=== PATIENT | female | born 1935 | race Caucasian/White ===

== ENCOUNTER 2019-01-22 | Emergency (ER) | payer MEDICARE, OTHER | END 2019-01-22 18:30 | disposition home or self-care (01) | DX: M54.9 Dorsalgia, unspecified (principal); R29.898 Other symptoms and signs involving the musculoskeletal system; S32.010A Wedge compression fracture of first lumbar vertebra, initial encounter for closed fracture | CPT/HCPCS: 36415; 72128; 72131; 82550; 83690; 83735; 85651; 99283; 99284; A9270; 80053; 84443; 85025 ==

== ENCOUNTER 2024-05-06 18:14 | Inpatient (IN) ==
--- NOTE | 2024-05-06 18:28 | ED Physician Documentation ---
History of Present Illness Stated complaint Stated Complaint: GEN WEAKNESS Chief complaint Chief Complaint: General Additonal information Additional information: 88-year-old female with history of pacemaker, memory deficit, hypothyroidism presents with altered mental status. History clarified from triage notes. Patient is relatively new to her skilled nursing. Intermittently lately, she has seemed generally weak, complaining of whole body aches, and today at times seemed agitated, including at the end of the visit with her family. No trauma, focal pain, fevers or chills, focal numbness or focal weakness, visual or hearing changes, syncope, or any other new concerns. Patient here is confused, unable to give additional history, though reportedly she is typically ANO x 4. Currently, she only knows her name and where she is. Review of Systems ROS Patient altered and cannot provide further information. Meds/Allgy Home Medications Ambulatory Orders Medication Instructions Recorded Confirmed acetaminophen 325 mg capsule 325 mg PO Q6H PRN pain 04/29/24 05/06/24 Allergies Allergies Allergy/AdvReac Type Severity Reaction Status Date / Time cat dander Allergy Intermediate Sneezing, Verified 05/06/24 18:48 watery eyes grass pollen Allergy Intermediate Sneezing, Verified 05/06/24 18:48 watery eyes PFSH Medical History Medical History (Updated 04/29/24 @ 17:47 by Wayne Purvis, DNP, PRIVATE BRANCH EXCHANGE SERVICE ADVISOR, FLUID DESIGNER) Lumbar compression fracture Leg weakness Back pain Family History Family History (Updated 04/29/24 @ 11:43 by Aram Ramos) Mother Alzheimers disease Father CVA (cerebral vascular accident) Brother Alzheimers disease Sister Alzheimers disease Social History Social History (Updated 04/29/24 @ 11:44 by Aram Ramos) Smoking Status: Former smoker If you are a former smoker, when did you quit? (Date/Year): 1979 Second hand tobacco smoke exposure: Yes Do you dip or chew tobacco?: No Do you vape?: No Marital Status: Support Person: Yes Relationship: Child Level: Assisted Home Mobility Equipment: Wheeled walker ETOH Use: Wine Frequency: Occasional ETOH Use Details: Drinks once every 6 months Substance Use: denies use POLST POLST Status: unknown no Medical Recor Exam Exam Const: no acute distress, non toxic appearing; calm, conversant, pleasant though confused Eyes: PERRLA, EOMI ENT: mucous membranes moist Neck: supple, non-tender Resp: no respiratory distress, clear to auscultation bilaterally Card: regular rate and rhythm, no murmurs Abd: non tender diffusely, no rigidity or rebound or guarding Back: no T or L spine tenderness, no CVA tenderness bilaterally Extrem: no deformities, no swelling bilateral lower extremities, 2+ distal pulses Neuro: ANOx2/4 (to name and where is), ctc operator grossly intact, grossly intact sensation and strength all extremities, no lateralizing signs, able to move all extremities equally, no dysarthria, no aphasia Skin: no rash, warm and dry Results Vitals Vitals: Vital Signs - 24 hr 05/06/24 18:14 05/06/24 18:22 Temperature 36.0 C L Temperature Source Temporal Artery Scan Pulse Rate 70 60 Respiratory Rate 20 18 Blood Pressure 144/99 H 144/99 H O2 Saturation 94 94 O2 Source Room air Room air Pain Intensity 6 5 Oxygen O2 Source Room air Labs Labs: Laboratory Tests 05/06/24 18:40 WBC 5.0 RBC 3.65 L Hgb 11.4 L Hct 36.1 L MCV 98.9 MCH 31.2 H MCHC 31.6 L RDW 14.1 Plt Count 186 MPV 11.2 H Neut # (Auto) 3.3 Lymph # (Auto) 1.2 L [place] # (Auto) 0.3 Eos # (Auto) 0.1 Baso # (Auto) 0.0 Absolute Nucleated RBC 0.00 Nucleated RBC % 0.0 Sodium 136 Potassium 4.3 Chloride 101 Carbon Dioxide 30 Anion Gap 5.0 L BUN 19 Creatinine 1.1 Estimated GFR (MDRD) 47 L Glucose 117 H Calcium 9.5 Total Bilirubin 1.0 AST 55 H ALT 22 Alkaline Phosphatase 53 Total Protein 7.1 Albumin 4.1 Globulin 3.0 Albumin/Globulin Ratio 1.4 PD Medical Decision Making ED course ED course: This patient presents with reported generalized weakness, altered mental status, without clear focal neurologic deficit to suggest stroke, without fever or clear focal pain or dyspnea. I ahve considered a broad differential including but not limited to viral syndrome, UTI, pneumonia, electrolyte derangements, intravascular volume depletion, ICH, renal failure, among others. However, progression of underlying dementia is also possible. I am obtaining CTA, chest x-ray, EKG, CBC, CMP, urinalysis, viral swab, giving fluids, and we will closely reassess. CBC with no leukocytosis, stable appearing anemia, no thrombocytopenia. EKG shows paced rhythm without clear acute ischemia, with rate WNL. QRS and QTc prolongation in setting of paced rhythm. No recent for comparison. [facility] Mays spoken with by RN, who also spoke with daughter. Patient was living with but he 1.5mo ago. It sounds like Celi Mays is more assisted living than a skilled nursing. She has been there about a week. Patient was not doing well living with daughter before this. On clarification, she is NOT typically ANOx4 at baseline but has been gradually worsening over many months. No medication allergies. No regular medications. Signing out stable condition at 1910 with plan to complete above work up and reassess. Discharge Plan Discharge Prescriptions: No Action acetaminophen 325 mg capsule 325 mg PO Q6H PRN (Reason: pain) Print Language: Spanish Stand Alone Forms: PCP List
[2024-05-06 18:45] LABS: BASOPHILS % (AUTO) 0.6 %; EOSINOPHILS # (AUTO) 0.1 10^3/uL (0.0-0.7); EOSINOPHILS % (AUTO) 1.8 %; HCT - HEMATOCRIT 36.1 % (37.0-47.0); HGB - HEMOGLOBIN 11.4 g/dL (12.0-16.0); LYMPHOCYTES # (AUTO) 1.2 10^3/uL (1.5-3.5); MEAN CORPUSCULAR HEMOGLOBIN 31.2 pg (27.0-31.0); MEAN CORPUSCULAR HGB CONC 31.6 g/dL (32.0-36.0); MEAN CORPUSCULAR VOLUME 98.9 fL (81.0-99.0); MEAN PLATELET VOLUME 11.2 fL (7.9-10.8); MONOCYTES # (AUTO) 0.3 10^3/uL (0.0-1.0); MONOCYTES % (AUTO) 6.3 %; NEUTROPHILS # (AUTO) 3.3 10^3/uL (1.5-6.6); NEUTROPHILS % (AUTO) 67.1 %; PLT - PLATELET COUNT 186 10^3/uL (130-450); RED BLOOD COUNT 3.65 10^6/uL (4.20-5.40); RED CELL DISTRIBUTION WIDTH 14.1 % (12.0-15.0)
[2024-05-06] MEDS: SODIUM CHLORIDE 0.9% 500 ML IV STA (18:46)
[2024-05-06 18:58] LABS: ALBUMIN 4.1 g/dL (3.2-5.5); CALCIUM 9.5 mg/dL (8.5-10.3); POTASSIUM 4.3 mmol/L (3.5-4.5)
[2024-05-06 19:04] LABS: ALBUMIN/GLOBULIN RATIO 1.4 (1.0-2.2); CREATININE 1.1 mg/dL (0.6-1.3); TOTAL PROTEIN 7.1 g/dL (6.4-8.9)
--- NOTE | 2024-05-06 19:17 | CT Report ---
PROCEDURE: CT Head WO INDICATIONS: AMS TECHNIQUE: Noncontrast 4.5 mm thick angled axial sections acquired from the foramen magnum to the vertex. For r adiation dose reduction, the following was used: automated exposure control, adjustment of mA and/or kV according to patient size. COMPARISON: None. FINDINGS: Image quality: Excellent. CSF spaces: Basal cisterns are patent. No extra-axial fluid collections. Ventricles are normal in size and shape. Brain: No midline shift. No intracranial masses or hemorrhage. Allen-white matter interface is norm al. Age-related volume loss and small vessel ischemic change. Skull and face: Calvarium and visualized facial bones are intact, without suspicious lesions. Sinuses: Visualized sinuses and mastoids are clear. IMPRESSION: No acute intracranial pathology. Reviewed by: Luisito Granado MD on 05/06/2024 7:15 PM PST Approved by: Luisito Granado MD on 05/06/2024 7:15 PM PST Station ID: [id number]
[2024-05-06 19:34] LABS: INFLUENZA A- RESP PCR PANEL NOT DETECTED; INFLUENZA B - RESP PCR PANEL NOT DETECTED; RSV- RESP PCR PANEL NOT DETECTED; SARS-CoV-2 -RESP PCR PANEL NOT DETECTED
--- NOTE | 2024-05-06 19:46 | XRAY Report ---
PROCEDURE: XR Chest 1V INDICATIONS: AMS TECHNIQUE: One view of the chest was acquired. COMPARISON: None. FINDINGS: Surgical changes and devices: Pacemaker. Lungs and pleura: No pleural effusions or pneumothorax. Mild pulmonary edema. Small left pleural eff usion and left basilar atelectasis. Mediastinum: Mediastinal contours appear normal. Heart size is enlarged. Bones and chest wall: No suspicious bony lesions. Overlying soft tissues appear unremarkable. IMPRESSION: Congestive heart failure exacerbation Reviewed by: Luisito Graando MD on 05/06/2024 7:44 PM PST Approved by: Luisito Granado MD on 05/06/2024 7:44 PM PST Station ID: [id number]
[2024-05-06 20:12] LABS: BILIRUBIN,URINE NEGATIVE (NEGATIVE); GLUCOSE, URINE (UA) NEGATIVE (NEGATIVE); KETONES,URINE (UA) NEGATIVE (NEGATIVE); LEUKOCYTE ESTERASE, URINE SMALL (NEGATIVE); NITRITE,URINE NEGATIVE (NEGATIVE); OCCULT BLOOD,URINE NEGATIVE (NEGATIVE); PROTEIN,URINE NEGATIVE (NEGATIVE); UROBILINOGEN,URINE 0.2 (NORMAL) E.U./dL (NORMAL)
[2024-05-06 20:19] LABS: BACTERIA,URINE Rare /HPF (None Seen); CLARITY,URINE CLEAR (CLEAR); RBC,URINE 0-5 /HPF (0-5); SQUAMOUS EPITHELIAL CELL,UR RARE Squamous (<= Few)
[2024-05-06] MEDS ORDERED: ACETAMINOPHEN 500 MG TABLET PO PRN (21:15)
[2024-05-06] MEDS ORDERED: ONDANSETRON 4 MG/2 ML VIAL IVP PRN (21:15)
--- NOTE | 2024-05-06 21:15 | ED Physician Documentation ---
ED Addendum Addendum Addendum: Patient endorsed to me by Dr. Cancino awaiting completion of workup. 88-year-old woman presents to the emergency department with generalized weakness, confusion and report from [facility] that she may have been acting erratically/agitated around staff. She reportedly has had several month decline in cognitive functioning and just moved to [facility] 1 week ago. patient AOX 1 in the ED and unable to state her location or the year. She does however state she has had a lot of changes recently including the other her and moving and is not adjusting well. denies CP, SOA, fever, n/v/abdominal pain, urinary symptoms or other complaints. Her workup included labwork, cxr, ct head, ua and was significant for +leukocyte esterase on ua that I attribute to asymtpomatic bacteriuria given she has no abdominal pain or urinary symptoms. Her confusion seems to be a gradual decline rather than acute encephalopathy. Ct head was negative. patient's CXR was remarkable for some pulmonary overload but lung exam is benign and she denies cp or soa therefore I do not consider this clinically significant at this time. Plan to monitor overnight and have social work see her in the morning for potential alternative placement since she may need more advanced care than what [facility] provides. Note that upon further interview of the daughter, patient stopped taking synthroid back in november under her doctor's approval since she had been on a very low dose and doing well. I reviewed her past labs and she had TSH of 64.58 4 days ago but appears not to have restarted synthroid yet. Provided 100ucg IV synthroid. Possible this is contributing to her confusion. plan to discuss with telehospitalist for admission for hypothyroid induced encephalopathy. Disposition admit condition stable Impression 1. altered mental status 2. hypothyroidism Discharge Plan Discharge Patient Disposition: [facility] DC/Xfer Condition: Stable Clinical Impression: Hypothyroidism, Acute alteration in mental status Prescriptions: No Action acetaminophen 325 mg capsule 325 mg PO Q6H PRN (Reason: pain) Print Language: Honduran
[2024-05-07] MEDS: LEVOTHYROXINE 100 MCG VIAL IVP STA ×2 (01:15→11:30)
[2024-05-07] MEDS ORDERED: MELATONIN 3 MG TABLET PO PRN (02:24)
[2024-05-07] MEDS ORDERED: MORPHINE 10 MG/ML VIAL IVP PRN (02:24)
--- NOTE | 2024-05-07 02:59 | HISTORY & PHYSICAL EXAMINATION ---
Chief Complaint Chief Complaint Chief Complaint: headache, confusion History of Present Illness History of Present Illness HPI Comment/Other: pt with worsening agitation and confusion over the past week, per her MICHELLE. no focal deficits, no falls, no chest pain, fevers, chills, n/v/d. pt was on synthroid, which was stopped this recent summer d/t normalizing of thryoid hormone levels. this was stopped per her pcp recommendations, and she was doing overall ok until about a week ago. no falls, no head injuries reported. pt feels confused but is able to answer basic questions and has complaints of headache. Review of Systems 14 pt review done with repeated, simple questions. positives per hpi; all others reviewed as negative PFSH Medical History Medical History (Updated 05/07/24 @ 02:28 by Rebecca Juarez MD) Lumbar compression fracture Leg weakness Back pain Family History Family History (Updated 04/29/24 @ 11:43 by Aram Ramos) Mother Alzheimers disease Father CVA (cerebral vascular accident) Brother Alzheimers disease Sister Alzheimers disease Social History Social History (Updated 04/29/24 @ 11:44 by Aram Ramos) Smoking Status: Former smoker If you are a former smoker, when did you quit? (Date/Year): 1979 Second hand tobacco smoke exposure: Yes Do you dip or chew tobacco?: No Do you vape?: No Marital Status: Support Person: Yes Relationship: Child Level: Assisted Home Mobility Equipment: Wheeled walker ETOH Use: Wine Frequency: Occasional ETOH Use Details: Drinks once every 6 months Substance Use: denies use POLST POLST Status: unknown no Medical Recor Meds/Allgy Home Medications Ambulatory Orders Medication Instructions Recorded Confirmed acetaminophen 325 mg capsule 325 mg PO Q6H PRN pain 04/29/24 05/06/24 Allergies Allergies Allergy/AdvReac Type Severity Reaction Status Date / Time cat dander Allergy Intermediate Sneezing, Verified 05/06/24 18:48 watery eyes grass pollen Allergy Intermediate Sneezing, Verified 05/06/24 18:48 watery eyes Exam Constitutional no apparent distress HENMT normocephalic, head/scalp atraumatic and hearing grossly normal bilaterally Eyes EOMs intact bilaterally and conjunctivae normal Neck/C-Spine visual inspection normal Respiratory per ed charting Cardiovascular per ed charting Neurology no focal deficits Psychiatry pt not able to recall full details of what's happening, but able to answer basic questions and give some history, and able to recall that she did take synthroid Conclusion/Plan Lab Results 05/06/24 18:40 05/06/24 18:40 Other Other Results/Comments: pt with - - toxic, metabolic encephalopathy in setting of uncontrolled hypothyroidism tsh >60 with low t4 IV synthroid given in ED will need to restarted on synthroid check thryoid us no focal deficits and head imaging NEG neuro checks - headache / fatigue in setting of above no focal deficits and head imaging without acute pathology tylenol prn f/u labs, neuro status further orders per clinical course
[2024-05-07] MEDS: LACTATED RINGERS 1,000 ML IV SCH (03:41)
[2024-05-07 05:43] LABS: BASOPHILS % (AUTO) 0.7 %; EOSINOPHILS # (AUTO) 0.1 10^3/uL (0.0-0.7); EOSINOPHILS % (AUTO) 3.2 %; HGB - HEMOGLOBIN 11.2 g/dL (12.0-16.0); LYMPHOCYTES # (AUTO) 1.3 10^3/uL (1.5-3.5); LYMPHOCYTES % (AUTO) 29.9 %; MEAN CORPUSCULAR HEMOGLOBIN 32.3 pg (27.0-31.0); MEAN CORPUSCULAR HGB CONC 32.9 g/dL (32.0-36.0); MEAN PLATELET VOLUME 11.5 fL (7.9-10.8); MONOCYTES # (AUTO) 0.3 10^3/uL (0.0-1.0); MONOCYTES % (AUTO) 7.7 %; NEUTROPHILS # (AUTO) 2.6 10^3/uL (1.5-6.6); NEUTROPHILS % (AUTO) 58.3 %; PLT - PLATELET COUNT 167 10^3/uL (130-450); RED BLOOD COUNT 3.47 10^6/uL (4.20-5.40); RED CELL DISTRIBUTION WIDTH 14.1 % (12.0-15.0); WHITE BLOOD COUNT 4.4 x10^3/uL (4.8-10.8)
[2024-05-07 06:01] LABS: ALBUMIN 4.1 g/dL (3.2-5.5); ALBUMIN/GLOBULIN RATIO 1.9 (1.0-2.2); BILIRUBIN,TOTAL 1.2 mg/dL (0.2-1.0); CALCIUM 9.1 mg/dL (8.5-10.3); MAGNESIUM 2.1 mg/dL (1.7-2.3); POTASSIUM 3.6 mmol/L (3.5-4.5); TOTAL PROTEIN 6.3 g/dL (6.4-8.9)
[2024-05-07 06:04] LABS: CHOL/HDL RATIO 4.8 (<4.4); CHOLESTEROL 342 mg/dL; HDL CHOLESTEROL 72 mg/dL; LDL CHOLESTEROL,CALCULATED 235 mg/dL; LDL/HDL RATIO 3.3 (<4.4); TRIGLYCERIDES 174 mg/dL; VLDL CHOLESTEROL 35 mg/dL
[2024-05-07] MEDS: PANTOPRAZOLE 40 MG TABLET PO SCH ×2 (06:28→08:43)
[2024-05-07 07:06] LABS: ESTIMATED AVERAGE GLUCOSE 120 mg/dL (70-100); HEMOGLOBIN A1c% 5.8 % (4.27-6.07)
[2024-05-07] MEDS: ENOXAPARIN 40 MG/0.4 ML SYRINGE SUBQ SCH (08:44)
--- NOTE | 2024-05-07 11:33 | PHARMACY PROGRESS NOTE ---
Best Possible Medication History Admit Date and Time: 05/07/24 0224 Home Medications Medication Instructions Recorded Confirmed Type acetaminophen 325 mg capsule 325 mg PO Q6H PRN pain 04/29/24 05/06/24 History Processed by: Pharmacy Medications reviewed in ED?: No Medication History completed: Yes Patient Interview: Pt unable to participate Secondary Source(s): Insurance records (patient has no fill history in over 1 year. Had been on levothyroxine 112mcg per clinic reports, but has not been on for at least 1 year per insurance records. Unable to reach family to confirm.) [facility] Statement: As the person ultimately responsible for medication therapy, providers are able to order a medication from an existing home medication list in [facility] via the "Reconcile Routine" prior to Confirmation of that medication by credit support specialist. Such practice is discouraged except when the physician, in their clinical judgment, deems that a medical need exists for a medication without regard to previous use.
[2024-05-07] MEDS: LEVOTHYROXINE 100 MCG VIAL IVP SCH (11:41)
--- NOTE | 2024-05-07 12:30 | PROVIDER PROGRESS NOTE ---
Subjective Prog Note Date Prog Note Date: 05/07/24 Prog Note Time: 12:24 Subjective Pt reports feeling: No change Subjective: She use to live in the [facility] and her PCP was Colleen Galarza who is a [facility]. She then came to visit her yamilaugher who lives on [address]. Began living with daughter due to memory issues and was seen in walk in clinic 03/04/2022 for a refill of her synthroid. Daughter thinks that over a year ago, maybe as recently as November, the patient stopped taking her thyroid medication because "I do not need it". As her memory issues became worse, the patient was transition to a memory care unit and she now lives in [facility]. She is not taking Synthroid at [facility]. She is a former smoker Current Medications Current Medications Current Medications: Current Medications Generic Name Dose Route Start Last Admin Trade Name Freq PRN Reason Stop Dose Admin Acetaminophen 650 mg 05/07/24 02:24 Acetaminophen 325 Mg Tablet PO Q6H PRN pain, fever Benzonatate 100 mg 05/07/24 02:24 Benzonatate 100 Mg Capsule PO TID PRN Cough Enoxaparin Sodium 40 mg 05/07/24 09:00 05/07/24 08:44 Enoxaparin 40 Mg/0.4 Ml Syringe SUBQ 40 mg DAILY JAQUELINE Administration Levothyroxine Sodium 100 mcg 05/08/24 07:00 05/07/24 11:41 Levothyroxine 100 Mcg Vial IVP 05/09/24 07:01 Not Given QDAC JAQUELINE Melatonin 3 mg 05/07/24 02:24 Melatonin 3 Mg Tablet PO QPM PRN sleep Morphine Sulfate 2 mg 05/07/24 02:24 Morphine 10 Mg/Ml Vial IVP Q4H PRN Pain Ondansetron HCl 4 mg 05/06/24 21:15 Ondansetron 4 Mg/2 Ml Vial IVP Q6HR PRN Nausea / Vomiting Pantoprazole Sodium 40 mg 05/07/24 07:00 05/07/24 08:43 Pantoprazole 40 Mg Tablet PO 40 mg QDAC JAQUELINE Administration Objective Vital Signs/Intake & Output Reviewed Vital Signs: Yes Vital Signs: Vital Signs x48h Temp Pulse Resp BP Pulse Ox O2 Flow Rate 05/07/24 08:59 36.8 C 60 18 126/74 93 0 Intake & Output: Intake & Output 11/11/24 11/12/24 11/13/24 11/14/24 05:59 05:59 05:59 05:59 Intake Total 500 / 500 1240 / 1240 Balance 500 / 500 1240 / 1240 Weight (kg) 63.4 kg Objective General Appearance: positive No acute distress and Other (Hirsute, facial edema, lid lag, rough low voice, sitting up trying to eat breakfast. Alert. Able to converse) Eyes Bilateral: positive Other (Lid lag) ENT: positive No signs of dehydration and Other (lips thick, lateral eyebrows gone) Neck: positive Thyroid nml and No JVD Respiratory: positive No respiratory distress and Breath sounds nml Cardiovascular: positive Regular rate & rhythm and Systolic murmur Abdomen: positive Non-tender, No organomegaly and Nml bowel sounds Skin: positive Dry (and scaly skin. Leg skin thick) Extremities: positive Pedal edema (nonpitting) Neurologic/Psychiatric: positive Disoriented to place and Disoriented to time; negative Motor nml (reflexes delayed) Lab Results 05/07/24 05:08 05/07/24 05:08 Other Labs: Lab Results x24hrs 05/07/24 05/06/24 05/06/24 Range/Units 05:08 20:00 18:40 WBC 4.4 L 5.0 (4.8-10.8) x10^3/uL RBC 3.47 L 3.65 L (4.20-5.40) 10^6/uL Hgb 11.2 L 11.4 L (12.0-16.0) g/dL Hct 34.0 L 36.1 L (37.0-47.0) % MCV 98.0 98.9 (81.0-99.0) fL MCH 32.3 H 31.2 H (27.0-31.0) pg MCHC 32.9 31.6 L (32.0-36.0) g/dL RDW 14.1 14.1 (12.0-15.0) % Plt Count 167 186 (130-450) 10^3/uL MPV 11.5 H 11.2 H (7.9-10.8) fL Neut # (Auto) 2.6 3.3 (1.5-6.6) 10^3/uL Lymph # (Auto) 1.3 L 1.2 L (1.5-3.5) 10^3/uL [place] # (Auto) 0.3 0.3 (0.0-1.0) 10^3/uL Eos # (Auto) 0.1 0.1 (0.0-0.7) 10^3/uL Baso # (Auto) 0.0 0.0 (0.0-0.1) 10^3/uL Absolute Nucleated RBC 0.00 0.00 x10^3/uL Nucleated RBC % 0.0 0.0 /100WBC Sodium 137 136 (135-145) mmol/L Potassium 3.6 4.3 (3.5-4.5) mmol/L Chloride 102 101 (101-111) mmol/L Carbon Dioxide 30 30 (21-32) mmol/L Anion Gap 5.0 L 5.0 L (6-13) BUN 15 19 (6-20) mg/dL Creatinine 1.0 1.1 (0.6-1.3) mg/dL Estimated GFR (MDRD) 53 L 47 L (>89) Glucose 86 117 H (74-104) mg/dL Estimat Average Glucose 120 H (70-100) mg/dL Hemoglobin A1c % 5.8 (4.27-6.07) % Calcium 9.1 9.5 (8.5-10.3) mg/dL Magnesium 2.1 (1.7-2.3) mg/dL Total Bilirubin 1.2 H 1.0 (0.2-1.0) mg/dL AST 51 H 55 H (10-42) IU/L ALT 21 22 (10-60) IU/L Alkaline Phosphatase 55 53 (42-121) IU/L Total Protein 6.3 L 7.1 (6.4-8.9) g/dL Albumin 4.1 4.1 (3.2-5.5) g/dL Globulin 2.2 3.0 (2.1-4.2) g/dL Albumin/Globulin Ratio 1.9 1.4 (1.0-2.2) Triglycerides 174 mg/dL Cholesterol 342 H ( - 200) mg/dL LDL Cholesterol, Calc 235 H ( - 129) mg/dL VLDL Cholesterol 35 mg/dL HDL Cholesterol 72 (60 - ) mg/dL LDL/HDL Ratio 3.3 (<4.4) Cholesterol/HDL Ratio 4.8 (<4.4) Urine Color YELLOW Urine Clarity CLEAR (CLEAR) Urine pH 6.0 (5.0-7.5) PH Ur Specific [place] 1.015 (1.002-1.030) Urine Protein NEGATIVE (NEGATIVE) mg/dL Urine Glucose (UA) NEGATIVE (NEGATIVE) mg/dL Urine Ketones NEGATIVE (NEGATIVE) mg/dL Urine Occult Blood NEGATIVE (NEGATIVE) Urine Nitrite NEGATIVE (NEGATIVE) Urine Bilirubin NEGATIVE (NEGATIVE) Urine Urobilinogen 0.2 (NORMAL) (NORMAL) E.U./dL Ur Leukocyte Esterase SMALL H (NEGATIVE) Urine RBC 0-5 (0-5) /HPF Urine WBC 6-10 H (0-5) /HPF Ur Squamous Epith Cells RARE Squamous (<= Few) Urine Bacteria Rare (None Seen) /HPF Urine Culture Comments INDICATED Nasal Influenza B PCR NOT DETECTED Nasal Influenza A PCR NOT DETECTED Nasal RSV (PCR) NOT DETECTED Nasal SARS-CoV-2 (PCR) NOT DETECTED ABX Reporting Has patient been on IV antibiotics over the past 48 hours?: No Assessment/Plan Problem List (1) Acute alteration in mental status: Impression: The daughter describes a slowly deteriorating alertness and disorientation attributed to dementia. But is not apparent to me is whether this patient was developing memory loss because of hypothyroidism or did she truly have Alzheimer's type dementia with hypothyroidism superimposed. Plan: IV Synthroid. While she is not in myxedema coma, she is definitely symptomatic from hypothyroidism and I do feel it warrants IV supplementation. Up-to-date literature suggest anywhere between 50 mcg to 100 mcg a day. I will give 100 mcg a day for 3 to 5 days. Reassess. And then switch her to p.o. (2) Hypothyroidism: Impression: As above. Also have PT and OT evaluate the patient.
--- NOTE | 2024-05-07 16:59 | PT Plan of Care ---
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 She has a history of lumbar compression fx, leg weakness, and back pain. At PT eval, pt was A&Ox1 sitting in her chair and was able to understand cueing while taking vitals. She was agreeable to PT eval. She was not able to provide information on her current living environment or PLOF due to her altered mental status. Pt can orient to [facility] but not to hospital. STS with MinAx2 with 4WW. In standing she required additional time in standing before amb and reported her legs are 'weak'. She amb 50'x2 with 4WW in the hallway with one rest break. PT reminded pt her room number outside of room, but pt immediately forgot and needed re- direction to enter her room. Throughout eval pt was tangential, easily distractible, requires help pathfinding, but easy to re-direct and easily cued to task. Patient will benefit from skilled PT due to limited mobility. When medically cleared PT recommends discharge back to [facility] in memory care unit. GOALS Improve sit to stand to:: Modified Independent Improve gait ability to:: SBA Advance Assistive Device to:: Four Wheeled Walker Increase distance walked to (in feet):: 120 Improve Sitting Balance to:: Good PLAN Frequency: 1-2x/day Duration: Until goals are met DISCHARGE RECOMMENDATIONS Discharge Location: Memory Care Unit at [facility] Support/Services Needed: With assist Other Discharge Equipment: 4WW Transport Needs at Discharge: B.L.S Other: BLS due to AMS
--- NOTE | 2024-05-07 17:52 | Ultrasound Report ---
PROCEDURE: US Soft Tissue Head or Neck INDICATIONS: thyroid us TECHNIQUE: Real-time scanning was performed of the thyroid gland, with image documentation. COMPARISON: None FINDINGS: Right: Not seen. Left: Thyroid lobe measures 2.1 x 0.9 x 0.9 cm Isthmus: Size cm thick. Echotexture: Homogeneous. This study is limited by the patient's inability to cooperate with the examination, with patient thomas on. IMPRESSION: No right thyroid lobe is seen. Please correlate with surgical history. The left thyroid lobe is small in size, without focally suspicious lesions. ACR TI-RADS definitions and recommendations: TI-RADS 1 (benign): 0 points. FNA not needed. TI-RADS 2 (not suspicious): 2 points. FNA not needed. TI-RADS 3: 3 points. "FNA if 2.5 cm or larger, follow up if 1.5 cm or larger (at 1, 3, and 5 years). TI-RADS 4: 4-6 points. "FNA if 1.5 cm or larger, follow up if 1 cm or larger (at 1, 2, 3, and 5 years). TI-RADS 5: 7 points or more. "FNA if 1 cm or larger, follow up if 0.5 cm or larger (every year for 5 years). Reviewed by: Landen Patel MD on 05/07/2024 4:51 PM [place] Approved by: Landen Patel MD on 05/07/2024 4:51 PM [place] Station ID: [id number]
[2024-05-08] MEDS ORDERED: SODIUM CHLORIDE FLUSH 0.9% 10 ML SYRINGE IVP PRN (14:17)
--- NOTE | 2024-05-08 14:57 | PROVIDER PROGRESS NOTE ---
Subjective Prog Note Date Prog Note Date: 05/08/24 Prog Note Time: 14:46 Subjective Pt reports feeling: No change Subjective: Elderly female, sitting up in a chair, eating breakfast. Seen again later and she is in bed, dozing, but wakes to my voice and is using the remote control of control at TV. She does not know where she is. Says that she is tired. But denies chest pain, shortness of breath, cough. Current Medications Current Medications Current Medications: Current Medications Generic Name Dose Route Start Last Admin Trade Name Freq PRN Reason Stop Dose Admin Acetaminophen 650 mg 05/07/24 02:24 Acetaminophen 325 Mg Tablet PO Q6H PRN pain, fever Benzonatate 100 mg 05/07/24 02:24 Benzonatate 100 Mg Capsule PO TID PRN Cough Enoxaparin Sodium 40 mg 05/07/24 09:00 05/08/24 08:22 Enoxaparin 40 Mg/0.4 Ml Syringe SUBQ 40 mg DAILY JAQUELINE Administration Levothyroxine Sodium 100 mcg 05/08/24 07:00 05/08/24 06:14 Levothyroxine 100 Mcg Vial IVP 05/09/24 07:01 100 mcg QDAC JAQUELINE Administration Melatonin 3 mg 05/07/24 02:24 Melatonin 3 Mg Tablet PO QPM PRN sleep Morphine Sulfate 2 mg 05/07/24 02:24 Morphine 10 Mg/Ml Vial IVP Q4H PRN Pain Ondansetron HCl 4 mg 05/06/24 21:15 Ondansetron 4 Mg/2 Ml Vial IVP Q6HR PRN Nausea / Vomiting Pantoprazole Sodium 40 mg 05/07/24 07:00 05/08/24 06:13 Pantoprazole 40 Mg Tablet PO 40 mg QDAC JAQUELINE Administration Sodium Chloride 10 ml 05/08/24 14:17 Sodium Chloride Flush 0.9% 10 Ml Syringe IVP PRN PRN NEEDED PER PROVIDER ORDERS Sodium Chloride 10 ml 05/08/24 17:00 Sodium Chloride Flush 0.9% 10 Ml Syringe IVP 0100,0900,1700 JAQUELINE Objective Vital Signs/Intake & Output Reviewed Vital Signs: Yes Vital Signs: Vital Signs x48h Temp Pulse Resp BP Pulse Ox 05/08/24 08:38 36.4 C L 61 16 133/78 H 97 Intake & Output: Intake & Output 05/06/24 05/07/24 05/08/24 05/09/24 05:59 05:59 05:59 05:59 Intake Total 500 / 500 1939 360 / 360 Balance 500 / 500 1939 360 / 360 Weight (kg) 63.4 kg Objective General Appearance: positive No acute distress and Lethargic (Mild with mild psychomotor slowing, and low hoarse voice) Eyes Bilateral: positive PERRL, EOMI and Other (Mild diffuse facial edema, lid lag and swollen upper eyelids. loss lateral eyebrows) ENT: positive No signs of dehydration and Other (lips are edematous, no change from yesterday) Neck: positive Thyroid nml and No JVD Respiratory: positive No respiratory distress; negative Breath sounds nml (when she inhales, slight "click" of respiration in upper chest. ?fixed phlegm in upper bronchial tube?) Cardiovascular: positive Regular rate & rhythm and Systolic murmur Abdomen: positive Non-tender and No organomegaly Extremities: positive Full ROM, Pedal edema (trace. ) and Other (skin is not thick) Neurologic/Psychiatric: positive CN's nml (2-12), Disoriented to place, Disoriented to time, Weakness, Slurred/abnml speech and Depressed mood/affect; negative Motor nml (delayed reflexes) Lab Results 05/07/24 05:08 05/07/24 05:08 Assessment/Plan Problem List (1) Acute alteration in mental status: Impression: I was able to speak to the daughter at length today. Mom was and living in [place]. Both she and her were having gradual cognitive and physical decline. He about 3 months ago. About 2 weeks later she brought mom to [place] to live here permanently so she has been living at [facility] for about 2 months. Daughter does the mom stopped taking her Synthroid in the spring 2023 because "she did not need it anymore". Daughter states that mom is DO NOT RESUSCITATE. Daughter is DURABLE POWER OF MANAGER HEART FAILURE. Plan: Synthroid IV tomorrow morning. Then plan for discharge to [facility]. Daughter to bring in copies of DPOA for us to scanned into our EMR I will fill out a POLST form with the daughter for her to take for herself and to take to [facility]. (2) Hypothyroidism: Impression: As above. Selected Entries 05/07/24 14:00 Assessment Pt is a pleasant 88 y.o female that was admitted due to metabolic encephalopathy, hypothyroidism , and general weakness. She has a history of lumbar compression fx, leg weakness, and back pain. At PT eval, pt was A&Ox1 sitting in her chair and was able to understand cueing while taking vitals. She was agreeable to PT eval. She was not able to provide information on her current living environment or PLOF due to her altered mental status. Pt can orient to [facility] but not to hospital. STS with MinAx2 with 4WW. In standing she required additional time in standing before amb and reported her legs are 'weak' . She amb 50'x2 with 4WW in the hallway with one rest break. PT reminded pt her room number outside of room , but pt immediately forgot and needed re- direction to enter her room. Throughout eval pt was tangential, easily distractible, requires help pathfinding, but easy to re- direct and easily cued to task. Patient will benefit from skilled PT due to limited mobility. When medically cleared PT recommends discharge back to [facility] in memory care unit.
[2024-05-08] MEDS: SODIUM CHLORIDE FLUSH 0.9% 10 ML SYRINGE IVP SCH (16:50)
[2024-05-08] MEDS: BENZONATATE 100 MG CAPSULE PO PRN (19:23)
[2024-05-09] MEDS: ACETAMINOPHEN 325 MG TABLET PO PRN (06:17)
[2024-05-09] MEDS: MULTIVITAMIN W/MINERALS TABLET PO SCH (08:47)
--- NOTE | 2024-05-09 10:44 | Discharge Summary ---
Discharge Summary Admit Date: 05/07/24 Discharge Date: 05/09/24 Discharging Provider: Mary Jo Joyner MD Primary Care Provider: LONA Short Code Status: Do Not Attempt Resuscitation Discharge Facility Name: [facility] DIAGNOSES Discharge Diagnoses with Status of Each Condition: 1. Altered mental status due to #2 2. Severe hypothyroidism 3. Patient noncompliance with medical program 4. Dementia, Alzheimer's type 5. Severe hyperlipidemia needs follow-up in 6 weeks after treatment 6. DO NOT RESUSCITATE status with POLST form filled out HPI History of Present Illness: pt with worsening agitation and confusion over the past week, per her SHELTER. no focal deficits, no falls, no chest pain, fevers, chills, n/v/d. pt was on synthroid, which was stopped this recent summer d/t normalizing of thryoid hormone levels. this was stopped per her pcp recommendations, and she was doing overall ok until about a week ago. no falls, no head injuries reported. pt feels confused but is able to answer basic questions and has complaints of headache. I was able to speak to the daughter at length the day after admission. Mom was and living in [place]. Both she and her were having gradual cognitive and physical decline. He about 3 months ago. About 2 weeks later[place] the patient has been living at [facility] for about 2 months. Daughter states that mom stopped taking her Synthroid in the spring 2023 because "she did not need it anymore". Daughter states that mom is DO NOT RESUSCITATE. Daughter is DURABLE POWER OF REMOTE RECRUITER. HOSPITAL COURSE Hospital Course: The patient was admitted inpatient status for hypothryoidism under the criteria of altered mental status and not due to hemodynamic instability. She was given 3 days of IV synthroid. US of thyroid shows half of her thyroid has been removed. Most likely she has had a partial thryoidectomy and required thyroid supplementation. Daughter is not sure. She has become more alert and interactive. But is not yet quite to baseline. I will be sending her home on po synthroid 112 mcg daily. She will need to see her PCP LONA Short in 4-6 weeks with a TSH and T4 checked. Adjust as needed if not at goal of TSH <4 and repeat TSH again 6 weeks later. During her stay, she had elevated blood pressures of 150s to 160s. No symptoms of cp, sob. I am adding losartan at discharge and her blood pressure should be checked with her PCP visits to adjust medications. Daughter and son-in-law were at bedside for instructions. they will be taking her to [facility]. Daughter is DPOA and brought in paper work for our records. She also filled out a POLST for confirmation of code status. ALLERGIES Allergies Allergy/AdvReac Type Severity Reaction Status Date / Time cat dander Allergy Intermediate Sneezing, Verified 05/06/24 18:48 watery eyes grass pollen Allergy Intermediate Sneezing, Verified 05/06/24 18:48 watery eyes MEDICATIONS Ambulatory Orders Medication Instructions Recorded Confirmed acetaminophen 325 mg capsule 325 mg PO Q6H PRN pain 04/29/24 05/06/24 levothyroxine 112 mcg tablet 112 mcg PO DAILY hypothryoid #30 05/09/24 (Euthyrox) tabs losartan 25 mg tablet 25 mg PO DAILY #30 tabs 05/09/24 [id number] 1 tab PO DAILYWM #30 tabs 05/09/24 fumarate 19 mg-folic acid 400 mcg tablet (Therapeutic-M) PHYSICAL EXAM AT DISCHARGE General Appearance: positive No acute distress, Alert and Other (slow response times, low hoarse voice in this elderly female who looks stated age. ) Eyes Bilateral: positive EOMI and Other (lid lag) ENT: positive Other (facial edema) Neck: positive No JVD Respiratory: positive No respiratory distress and Breath sounds nml Cardiovascular: positive Regular rate & rhythm and Systolic murmur Abdomen: positive Non-tender, No organomegaly and Nml bowel sounds Skin: positive Color nml, Dry and Pallor Extremities: positive Non-tender, Full ROM and Pedal edema (trace but no myxedema) Neurologic/Psychiatric: positive Motor nml (diffuse weakness), Disoriented to person, Disoriented to place, Disoriented to time and Slurred/abnml speech LABS 05/07/24 05:08 05/07/24 05:08 TIME SPENT Time Spent in Discharge (Minutes): 40 Discharge Plan Discharge Patient Disposition: SHELTER, Self Care Condition: Stable Medically Cleared Date:: 05/09/24 Prescriptions: New Therapeutic-M 19 mg iron- 400 mcg Tablet 1 tab PO DAILYWM Qty: 30 0RF levothyroxine [Euthyrox] 112 mcg tablet 112 mcg PO DAILY Qty: 30 2RF losartan 25 mg tablet 25 mg PO DAILY Qty: 30 2RF Continued acetaminophen 325 mg capsule 325 mg PO Q6H PRN (Reason: pain) Activity Restrictions: Activity as Tolerated Diet: Regular Health Concerns: Presented as confusion, slow word finding, and overall aches and pains. We found you to have a severely and dangerously low thyroid. Assessment: Patient is disoriented to person, place, and time. Psychomotor slowing. Daughter is in the room to receive instructions and to take patient back to memory care unit Plan of Treatment: 1. Please see your primary care provider in the next 1 month. 2. Your TSH and T4 blood levels need to be checked in his office Print Language: Khmer Patient Instructions: Thyroid Probs Tx, Thyroid Common Probs, Hypothyroidism Myxedema Dc Stand Alone Forms: SNF Discharge Follow-up Care: Wayne Purvis, TONI, FREIGHT TRAFFIC CONSULTANT, SCRIPT WRITER [Primary Care Provider] -
[2024-05-09 11:07] VITALS: O2SAT 94
== END 2024-05-09 11:36 | disposition home or self-care (01) | DRG 645 ==
LOC: MS2 18:14 → ED 18:14 → MS2 05-07 03:35
PROVIDERS: ADMIT Student in an Organized Health Care Education/Training Program; ATTEND Specialist
DX: Z87.891 Personal history of nicotine dependence; I25.2 Old myocardial infarction; G92.8 Other toxic encephalopathy; Z91.148 Patient's other noncompliance with medication regimen for other reason; Z95.0 Presence of cardiac pacemaker; Z79.890 Hormone replacement therapy; Z63.4 Disappearance and death of family member; R03.0 Elevated blood-pressure reading, without diagnosis of hypertension; Z79.899 Other long term (current) drug therapy; Z66 Do not resuscitate; F02.80 Dementia in other diseases classified elsewhere, unspecified severity, without behavioral disturbance, psychotic disturbance, mood disturbance, and anxiety; E03.9 Hypothyroidism, unspecified; I50.9 Heart failure, unspecified; R94.31 Abnormal electrocardiogram [ECG] [EKG]; G30.9 Alzheimer's disease, unspecified; E78.5 Hyperlipidemia, unspecified; E89.0 Postprocedural hypothyroidism; Z11.52 Encounter for screening for COVID-19

== ENCOUNTER 2025-03-20 15:59 | Inpatient (IN) ==
[2025-03-20 18:47] LABS: HCT - HEMATOCRIT 33.8 % (37.0-47.0); HGB - HEMOGLOBIN 11.2 g/dL (12.0-16.0); MEAN PLATELET VOLUME 12.9 fL (7.9-10.8); NRBC ABSOLUTE COUNT (AUTO) 0.00 x10^3/uL; NUCLEATED RED BLOOD CELLS AUTO 0.0 /100WBC; PLT - PLATELET COUNT 161 10^3/uL (130-450); RED CELL DISTRIBUTION WIDTH 12.7 % (12.0-15.0)
[2025-03-20 19:05] LABS: ALT ALANINE AMINOTRANSFERASE 16.0 IU/L (10-60); AST ASPARTATE AMINOTRANSFERASE 24.0 IU/L (10-42); BUN - BLOOD UREA NITROGEN 68.0 mg/dL (6-20); CARBON DIOXIDE - CO2 21.0 mmol/L (21-32); CREATININE 2.9 mg/dL (0.6-1.3); GFR - MDRD 15.0 (>89)
[2025-03-20] MEDS: SODIUM CHLORIDE 0.9% 1,000 ML IV STA ×2 (19:19→21:26)
--- NOTE | 2025-03-20 20:07 | XRAY Report ---
PROCEDURE: XR Chest 1V INDICATIONS: sepsis work up TECHNIQUE: One view of the chest was acquired. COMPARISON: Chest radiograph 05/06/2024 FINDINGS: Surgical changes and devices: Left chest wall AICD device with cardiac leads Lungs and pleura: No pleural effusions or pneumothorax. No focal dense consolidation. Increased interstitial markings represent mild pulmonary edema.. Mediastinum: Mediastinal contours appear normal. Heart size is normal. Bones and chest wall: No suspicious bony lesions. Overlying soft tissues appear unremarkable. IMPRESSION: No focal dense airspace consolidation. Increased interstitial markings represent mild pulm edema. Reviewed by: Negar Armendariz MD, PhD on 03/20/2025 8:03 PM PDT Approved by: Negar Armendariz MD, PhD on 03/20/2025 8:03 PM PDT Station ID: [id number]
[2025-03-20 22:20] LABS: ALT ALANINE AMINOTRANSFERASE 13.0 IU/L (10-60); AST ASPARTATE AMINOTRANSFERASE 17.0 IU/L (10-42); BUN - BLOOD UREA NITROGEN 65.0 mg/dL (6-20); CARBON DIOXIDE - CO2 19.0 mmol/L (21-32); CREATININE 2.7 mg/dL (0.6-1.3); GFR - MDRD 17.0 (>89)
--- NOTE | 2025-03-20 22:34 | ED Physician Documentation ---
History of Present Illness Stated complaint Stated Complaint: HYPOTENSION Chief complaint Chief Complaint: General History obtained from History obtained from: Patient History of Present Illness Timing: Prior to arrival Additonal information Additional information: Erika caballero is an 89-year-old female with recurrent falls dementia and is on palliative care she presents to the emergency department after multiple falls over the last few days she was evaluated here in the emergency department she was not given fluids though as she had difficulty obtaining IV line. She had some new elevated creatinine levels from 1-3 and has had poor oral intake according to the family. She presents after walk-in clinic noted she was hypotensive at the [facility] today and she was sent to the ED. Patient is A and O x 1 no acute distress brought in by her daughter for the symptoms. Meds/Allgy Home Medications Ambulatory Orders Medication Instructions Recorded Confirmed acetaminophen 325 mg capsule 325 mg PO Q6H PRN pain 03/20/25 levothyroxine 125 mcg tablet 125 mcg PO QDAY #30 tabs 09/29/24 03/20/25 (Euthyrox) losartan 25 mg tablet 25 mg PO DAILY #90 tabs 04/01/1603/20/25 ulwvapgoanqt-ctzykvik-[id number] 1 tab PO DAILYWM #180 tabs 09/29/24 03/20/25 fumarate 19 mg-folic acid 400 mcg tablet (Therapeutic-M) memantine 5 mg tablet See Rx Instructions .Route 0 11/17/24 03/20/25 .COMPLEX #90 tabs quetiapine 25 mg tablet 25 mg PO QDAY #90 tabs 01/1903/20/25 Allergies Allergies Allergy/AdvReac Type Severity Reaction Status Date / Time cat dander Allergy Intermediate Sneezing, Verified 03/20/25 14:40 watery eyes grass pollen Allergy Intermediate Sneezing, Verified 03/20/25 14:40 watery eyes PFSH Active Problems All Active Problems (Updated 03/20/25 @ 22:45 by Radha Jhaveri PA-C) Recurrent falls (Acute) Acute dehydration (Acute) JANIE (acute kidney injury) (Acute) Renal insufficiency (Acute) Gastroenteritis (Acute) Dehydration (Acute) JANIE (acute kidney injury) (Acute) Fall (Acute) Hyperlipidemia, unspecified (Acute) Severe dementia with agitation (Acute) Dementia (Acute) Preventative health care (Acute) DNR (do not resuscitate) (Acute) Hypertension (Acute) Rib pain (Acute) Memory deficit (Acute) Pacemaker (Acute) Hypothyroidism (Acute 03/04/22) Medical History Medical History (Updated 03/20/25 @ 22:45 by Radha Jhaveri PA-C) Lumbar compression fracture Leg weakness Back pain Family History Family History Mother Alzheimers disease Father CVA (cerebral vascular accident) Brother Alzheimers disease Sister Alzheimers disease Social History Social History (Updated 03/20/25 @ 14:42 by Clover Matt) Smoking Status: Former smoker If you are a former smoker, when did you quit? (Date/Year): 1979 Second hand tobacco smoke exposure: No Do you dip or chew tobacco?: No Do you vape?: No Living arrangement: Assisted living Marital Status: Living Condition: With caregiver(s) Support Person: Yes Physical Activity: Chairfast Level: Assisted Do you feel safe in your home environment?: Yes History of physical, verbal, emotional, or financial abuse?: No ETOH Use: Wine Frequency: Occasional ETOH - Additional Notes: Drinks once every 6 months Substance Use: denies use POLST Patient has POLST: Yes Exam Exam Vital Signs: Vital Signs x48h Temp Pulse Resp BP Pulse Ox 03/20/25 21:48 60 136/46 H 96 03/20/25 21:18 60 16 140/56 H 94 03/20/25 21:00 60 91/69 96 03/20/25 19:21 57 L 86/69 L 97 03/20/25 18:15 60 18 128/79 99 03/20/25 16:01 36.4 C L 70 18 123/63 95 Constitutional normal general appearance [facility] normocephalic Dry mucous membranes. Eyes PERRL, EOMs intact bilaterally and conjunctivae normal Chest inspection of chest normal Respiratory breath sounds equal bilaterally, normal respiratory effort and clear to a uscultation bilaterally Cardiovascular normal heart rate noted, regular rhythm noted, no gallop and no rub Gastrointestinal abdomen normal to inspection Genitourinary no CVA tenderness Back/Pelvis spine normal to inspection Results Vitals Vitals: Vital Signs - 24 hr 03/20/25 16:01 03/20/25 18:15 03/20/25 19:21 Temperature 36.4 C L Temperature Source Temporal Artery Scan Pulse Rate 70 60 57 L Respiratory Rate 18 18 Blood Pressure 123/63 128/79 86/69 L O2 Saturation 95 99 97 O2 Source Room air Room air Pain Intensity 0 03/20/25 21:00 03/20/25 21:18 03/20/25 21:48 Temperature Temperature Source Pulse Rate 60 60 60 Respiratory Rate 16 Blood Pressure 91/69 140/56 H 136/46 H O2 Saturation 96 94 96 O2 Source Room air Room air Room air Pain Intensity Oxygen O2 Source Room air Labs Labs: Laboratory Tests 03/20/25 03/20/25 18:42 22:00 WBC 8.1 RBC 3.73 L Hgb 11.2 L Hct 33.8 L MCV 90.6 MCH 30.0 MCHC 33.1 RDW 12.7 Plt Count 161 MPV 12.9 H Neut # (Auto) 4.7 Lymph # (Auto) 2.7 [place] # (Auto) 0.6 Eos # (Auto) 0.1 Baso # (Auto) 0.0 Absolute Nucleated RBC 0.00 Nucleated RBC % 0.0 Sodium 143 144 Potassium 4.8 H 4.3 Chloride 109 114 H Carbon Dioxide 21 19 L Anion Gap 13.0 11.0 BUN 68 H 65 H Creatinine 2.9 H 2.7 H Estimated GFR (MDRD) 15 L 17 L Glucose 94 87 Calcium 10.6 H 9.6 Magnesium 2.1 Total Bilirubin 1.2 H 1.0 AST 24 17 ALT 16 13 Alkaline Phosphatase 69 57 Total Protein 7.3 6.1 L Albumin 4.2 3.6 Globulin 3.1 2.5 Albumin/Globulin Ratio 1.4 1.4 PD Medical Decision Making ED course Complexity details: reviewed old records and reviewed results ED course: Patient 89-year-old female presents to the emergency department after hypotensive episodes with blood pressure of 68 SBP at walk-in clinic on arrival patient's blood pressure improved to 123 she has had poor oral intake for the few weeks according to the family she has a history of dementia she is currently on palliative care she has been seen here multiple times throughout the week for recurrent falls she has had a new JANIE with creatinine baseline closer to 1 she is now at 3 she had no acute IV fluids given in hospital the last 2 days. She has no nausea vomiting diarrhea according to the family. Has had decreased oral intake as she has not been wanting to eat more recently. No recent falls today blood pressure improved with some IV fluids here in the ED after IV was placed by Dr. Escobedo. She has had persistent hypotensive episodes but her creatinine improved from 2.9-2.7 here in the ED. Patient admitted to Dr. Garber here in the ED patient will be admitted to the floor we discussed that patient has had a slightly improved creatinine and he is concerned that we do not have nephrology here at bedside hospital staff does have ability to call nephrology if necessary. Additionally patient has downtrending creatinine which was as I discussed with Ga HAYNES earlier this would be requirement for admitting for janie to ensure improvement in creatinine function. Dr. Garber aceepts patient to the hospital Discharge Plan Discharge Patient Disposition: [facility] DC/Xfer Condition: Good Clinical Impression: JANIE (acute kidney injury), Acute dehydration, Recurrent falls Prescriptions: No Action Therapeutic-M 19 mg iron- 400 mcg tablet 1 tab PO DAILYWM Qty: 180 1RF losartan 25 mg tablet 25 mg PO DAILY Qty: 90 1RF levothyroxine [Euthyrox] 125 mcg tablet 125 mcg PO QDAY Qty: 30 2RF memantine 5 mg tablet See Rx Instructions .ROUTE .COMPLEX Qty: 90 1RF Dose Instruction: take 1 tablet by mouth every morning for 30 DAYS Rx Instructions: take 1 tablet by mouth every morning for 30 DAYS quetiapine 25 mg tablet 25 mg PO QDAY Qty: 90 0RF Rx Instructions: Take 1 tablet daily acetaminophen 325 mg capsule 325 mg PO Q6H PRN (Reason: pain) Print Language: Macedonian
--- NOTE | 2025-03-20 23:09 | HISTORY & PHYSICAL EXAMINATION ---
Chief Complaint Chief Complaint Chief Complaint: Hypotension History of Present Illness History of Present Illness HPI Comment/Other: 89 y old female with PMH Dementia brought in from memory care facility due to low bp and not eating well. Pt has dmeentia so most of history is by daughter at bed side. As per daughter, pt has not been eating well lately. She has been in ER three time this week. Denies chest pain, nausea, vomiting, diarrhea, constipation On presentation, patient was hypotensive. Llabs showed JANIE In ER, patient was given IVF. Labs were repeated and creatinine improved to 2.7 Pt id admitted due to JANIE, dehydration and hypotension Review of Systems Status of ROS: unobtainable due to medical condition PFSH Active Problems All Active Problems (Updated 03/20/25 @ 22:45 by Radha Jhaveri PA-C) Recurrent falls (Acute) Acute dehydration (Acute) JANIE (acute kidney injury) (Acute) Renal insufficiency (Acute) Gastroenteritis (Acute) Dehydration (Acute) JANIE (acute kidney injury) (Acute) Fall (Acute) Hyperlipidemia, unspecified (Acute) Severe dementia with agitation (Acute) Dementia (Acute) Preventative health care (Acute) DNR (do not resuscitate) (Acute) Hypertension (Acute) Rib pain (Acute) Memory deficit (Acute) Pacemaker (Acute) Hypothyroidism (Acute 03/04/22) Medical History Medical History (Updated 03/20/25 @ 22:45 by Radha Jhaveri PA-C) Lumbar compression fracture Leg weakness Back pain Family History Family History Mother Alzheimers disease Father CVA (cerebral vascular accident) Brother Alzheimers disease Sister Alzheimers disease Social History Social History (Updated 03/20/25 @ 14:42 by Clover Matt) Smoking Status: Former smoker If you are a former smoker, when did you quit? (Date/Year): 1979 Second hand tobacco smoke exposure: No Do you dip or chew tobacco?: No Do you vape?: No Living arrangement: Assisted living Marital Status: Living Condition: With caregiver(s) Support Person: Yes Physical Activity: Chairfast Level: Assisted Do you feel safe in your home environment?: Yes History of physical, verbal, emotional, or financial abuse?: No ETOH Use: Wine Frequency: Occasional ETOH - Additional Notes: Drinks once every 6 months Substance Use: denies use POLST Patient has POLST: Yes Meds/Allgy Home Medications Ambulatory Orders Medication Instructions Recorded Confirmed acetaminophen 325 mg capsule 325 mg PO Q6H PRN pain 03/20/25 levothyroxine 125 mcg tablet 125 mcg PO QDAY #30 tabs 09/29/24 03/20/25 (Euthyrox) losartan 25 mg tablet 25 mg PO DAILY #90 tabs 01/1603/20/25 [id number]-[id number]-gbto 1 tab PO DAILYWM #180 tabs 09/29/24 03/20/25 fumarate 19 mg-folic acid 400 mcg tablet (Therapeutic-M) memantine 5 mg tablet See Rx Instructions .Route 0 11/17/24 03/20/25 .COMPLEX #90 tabs quetiapine 25 mg tablet 25 mg PO QDAY #90 tabs 01/1903/20/25 Allergies Allergies Allergy/AdvReac Type Severity Reaction Status Date / Time cat dander Allergy Intermediate Sneezing, Verified 03/20/25 14:40 watery eyes grass pollen Allergy Intermediate Sneezing, Verified 03/20/25 14:40 watery eyes Exam Exam Vital Signs: Vital Signs x48h Temp Pulse Resp BP Pulse Ox 03/20/25 21:48 60 136/46 H 96 03/20/25 21:18 60 16 140/56 H 94 03/20/25 21:00 60 91/69 96 03/20/25 19:21 57 L 86/69 L 97 03/20/25 18:15 60 18 128/79 99 03/20/25 16:01 36.4 C L 70 18 123/63 95 Constitutional normal general appearance and no apparent distress [facility] normocephalic Eyes PERRL Respiratory breath sounds equal bilaterally Cardiovascular normal heart rate noted Gastrointestinal abdomen normal to inspection Extremities normal to inspection Neurology no focal motor deficit noted Skin no rash Conclusion/Plan Problem List (1) JANIE (acute kidney injury): Plan: A: JANIE Dehydration Weakness/ fatigue Dementia Debility Plan: Admit to med surg Cardiac tele Renal US Start NS @ 100 cc/h Monitor i/o, electrolytes Swallow eval PT DVT prophylaxic: SCD Full code Pt is admitted as inpatient as more than 2 midnight stay is expected Lab Results 03/20/25 18:42 03/20/25 22:00
[2025-03-21] MEDS ORDERED: SODIUM CHLORIDE FLUSH 0.9% 10 ML SYRINGE IVP PRN (00:55)
[2025-03-21] MEDS ORDERED: ONDANSETRON ODT 4 MG TABLET TL PRN (00:55)
[2025-03-21] MEDS: SODIUM CHLORIDE 0.9% 1,000 ML IV SCH (02:22)
[2025-03-21] MEDS: SODIUM CHLORIDE FLUSH 0.9% 10 ML SYRINGE IVP SCH (02:22)
[2025-03-21 08:13] LABS: GLUCOSE, URINE (UA) NEGATIVE (NEGATIVE); KETONES,URINE (UA) TRACE mg/dL (NEGATIVE); OCCULT BLOOD,URINE NEGATIVE (NEGATIVE)
[2025-03-21 08:14] LABS: SQUAMOUS EPITHELIAL CELL,UR FEW Squamous (<= Few)
--- NOTE | 2025-03-21 09:39 | PHARMACY PROGRESS NOTE ---
Best Possible Medication History Admit Date and Time: 03/20/25 2244 Home Medications Medication Instructions Recorded Confirmed Type acetaminophen 325 mg capsule 325 mg PO Q6H PRN pain 03/21/25 History levothyroxine 125 mcg tablet 125 mcg PO QDAY #30 tabs 09/29/24 03/21/25 Rx (Euthyrox) losartan 25 mg tablet 25 mg PO DAILY #90 tabs 01/1603/21/25 Rx flcimyiipauv-hlzhmsua-npri 1 tab PO DAILYWM #180 tabs 09/29/24 03/21/25 Rx fumarate 19 mg-folic acid 400 mcg tablet (Therapeutic-M) memantine 5 mg tablet See Rx Instructions .Route 0 11/17/24 03/21/25 Rx .COMPLEX #90 tabs Processed by: Nursing Medications reviewed in ED?: Yes Medication History completed: Yes Secondary Source(s): Facility MAR as ONLY source [facility] Statement: As the person ultimately responsible for medication therapy, providers are able to order a medication from an existing home medication list in [facility] via the "Reconcile Routine" prior to Confirmation of that medication by pharmacy retail support specialist. Such practice is discouraged except when the physician, in their clinical judgment, deems that a medical need exists for a medication without regard to previous use.
--- NOTE | 2025-03-21 10:16 | ADVANCE CARE PLANNING NOTE ---
Advance Care Planning Planning Encounter Date: 03/21/25 Time: 10:11 Purpose: Establish care goals and CODE STATUS Parties in Attendance: Patient, DPOA (daughter), hospitalist, DNP student (Lizzy Maríalorena) Decisional Capacity of the Patient: Unable to participate due to severe cognitive deficits Diagnosis for Encounter (1) Severe dementia with agitation: Qualifiers: Dementia type: unspecified type Qualified Code(s): F03.C11 - Unspecified dementia, severe, with agitation Summary: Diagnosed 5 years ago, gradually progressive and severe. Placed in assisted living facility August 2024 Encounter Subjective/Patient's Story: She was born and raised in the [facility] but has lived in [place], [place], and most recently [facility]. She moved to [place] to be closer to her daughter who lives here on the [place]. When she moved here, she moved to the [facility]. She has been twice. With her second marriage, over 5 years ago, it was noticed that she was having cognitive deficits. 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 Her daughter laughed and said that her favorite memory is mom bringing kidney slides and lung slides to class so that the kids could see what tissue look like on a slide. She has 3 children. However 1 daughter is , 1 daughter ([place] Poe [phone]) lives nearby and is her DPOA, and her third is a son who is estranged from the family because of alcohol and drug abuse. He lives in [place]. Her became ill, was hospitalized in August 2024. He ended up passing away. The family did not even know he was sick because the parents never called them. Ms. Heller was found wandering in the neighborhood and the police contacted the daughter. And that is how the daughter found out that her stepfather was in the hospital and that her mom's dementia had progressed to the point that it was dangerous for her to be alone. Shortly after her 's , the patient was brought here to the [place] and lives at [facility]. She is still able to dress herself. She is very reluctant to take baths and it becomes a struggle at the assisted living facility. She needs prompting to go to the toilet but is occasionally incontinent. Does not make it to the bathroom. She is to be able to feed herself but, over the last few weeks, it is noted that she just does not want to eat. Her favorite thing in the world is to go to [employer] and eat chicken nuggets and drink a milkshake and watch the kids play on the playground. But daughter noticed that for the last few times mom will have a chicken nugget, start chewing, and just pool it in her mouth and never quite swallow. She then plays with a milkshake and never really eats it. She does not use a cane or walker. Memory loss is moderate to severe. Patient really does not recognize where she is. She does recognize her relatives such as her grandchildren, but it takes quite a while and minutes of conversation before she remembers them. She recognizes her daughter in the context of a young person who still has her father that is alive. She talks about her as if he were still alive (away doing a project) and that her daughter still does activities with him. But when she first meets her daughter for the day, she sometimes mistakes are for someone that "took my car away". Daughter states that mom is DNR. There has been a sharp reduction in functional status. Still able to have a conversation with some sentence structure but that is deteriorating more more. Still able to get up but in the last week that is deteriorated as well. With the sharp deterioration in status, daughter is open to the idea of possible transition to hospice. However, she is still hesitant. For instance, she would want her mom to get IV fluids and I explained that in hospice you do not. She then asked a good question "what of my mom has a hip fracture"?. Would the patient be allowed to have her hip fixed or does she have to in pain?I pointed out that hospice would be an additional service and the assisted living facility. They would be there to help and guide the assisted living facility with comfort/palliative measures. Objective/Medical Story: 89 y old female with PMH Dementia brought in from memory care facility due to low bp and not eating well. Pt has dmeentia so most of history is by daughter at bed side. As per daughter, pt has not been eating well lately. She has been in ER three time this week. Denies chest pain, nausea, vomiting, diarrhea, constipation. She had a hospitalization in April 2024 for altered mental status. She was found to be severely hypothyroid because she had decided, many months ago, she stopped taking her Synthroid. Synthroid was resumed with her April 2024 admission. In April 2024 TSH was 65. June 2024 she was 21. And in July 2024 she was 6.15. On presentation, patient was hypotensive. Llabs showed JANIE In ER, patient was given IVF. Labs were repeated and creatinine improved to 2.7 Pt id admitted due to JANIE, dehydration and hypotension Goals of Care: Daughter would like to focus on comfort. Plan: 1. DO NOT RESUSCITATE noted. POLST form from April 2024 reviewed. No changes at this time. 2 once this acute episode of care is completed, daughter interested in possible referral to hospice. Code Status: Do Not Attempt Resuscitation Time spent on advance care plannin minutes
--- NOTE | 2025-03-21 11:26 | PROVIDER PROGRESS NOTE ---
Subjective Prog Note Date Prog Note Date: 03/21/25 Subjective Pt reports feeling: No change Subjective: Ms. Heller is a 89-year-old female who presented from [facility] for hypotension and poor appetite, found to be dehydrated and in JANIE. Of note, patient had previous ED visits this week on 03/15 for neck pain after ground level fall (CT neck was negative and given IVF) and 03/18 for abdominal pain (d/c'd with instructions encourage PO fluid intake). She was ultimately admitted 03/20 after presenting to a walk-in clinic with persistent JANIE and hypotension SBP 80s. Upon assessment patient herself denies any acute complaints. She is able to cooperate with most simple commands but is unable to provide a detailed history, is able to answer yes/no questions. She denies pain, dizziness, vertigo, chest pain/discomfort, palpitations, nausea. Current Medications Current Medications Current Medications: Current Medications Generic Name Dose Route Start Last Admin Trade Name Freq PRN Reason Stop Dose Admin Acetaminophen 650 mg 03/21/25 00:55 Acetaminophen 325 Mg Tablet PO Q4HR PRN Pain 1 to 4, or Fever Sodium Chloride 1,000 mls @ 100 mls/hr 03/21/25 00:55 03/21/25 07:11 Normal Saline 0.9% IV 100 mls/hr .Q10H JAQUELINE Administration Ondansetron HCl 4 mg 03/21/25 00:55 Ondansetron Odt 4 Mg Tablet TL Q6HR PRN Nausea / Vomiting Petrolatum 1 applic 03/21/25 11:00 Petrolatum White 5 Gm Packet TOP PRN PRN Dry Lips Sodium Chloride 10 ml 03/21/25 00:55 Sodium Chloride Flush 0.9% 10 Ml Syringe IVP PRN PRN NEEDED PER PROVIDER ORDERS Sodium Chloride 10 ml 03/21/25 01:00 03/21/25 10:06 Sodium Chloride Flush 0.9% 10 Ml Syringe IVP 10 ml 0100,0900,1700 JAQUELINE Administration Objective Vital Signs/Intake & Output Vital Signs: Vital Signs x48h Temp Pulse Resp BP Pulse Ox 03/21/25 04:05 36.5 C 61 14 129/54 L 96 Intake & Output: Intake & Output 09/24/25 09/25/25 09/26/25 09/27/25 23:59 23:59 23:59 23:59 Intake Total 1000 / 1000 900 / 900 Output Total 200 / 200 Balance 1000 / 1000 700 / 700 Weight (kg) 45 kg Objective General Appearance: positive No acute distress and Lethargic (Easily arousable to verbal stimuli) Eyes Bilateral: positive Normal inspection, PERRL, Conjunctivae nml, No scleral icterus and Other (Wearing corrective lenses) ENT: positive Other (White plaques on tongue, none to palates) Neck: positive Nml inspection, No JVD and Trachea midline Respiratory: positive No respiratory distress and Breath sounds nml Cardiovascular: positive Regular rate & rhythm and No murmur Peripheral Pulses: 1+: Dorsalis pedis (R), 1+: Dorsalis pedis (L), 1+: Posterior tibialis (R) and 1+: Posterior tibialis (L) and 2+: Radial (R) and 2+: Radial (L) Abdomen: positive Non-tender, Nml bowel sounds and No distention Back: positive Nml inspection Skin: positive No rash, Warm and Dry Extremities: positive Nml appearance and No pedal edema Neurologic/Psychiatric: positive Motor nml (Doesn't follow commands to test residential treatment counselor strength), Mood/affect nml, Disoriented to place and Disoriented to time; negative Disoriented to person, Facial droop or Slurred/abnml speech Lab Results 03/20/25 18:42 03/20/25 22:00 Other Labs: Lab Results x24hrs 03/21/25 03/21/25 03/20/25 Range/Units 07:09 07:09 22:00 WBC (4.8-10.8) x10^3/uL RBC (4.20-5.40) 10^6/uL Hgb (12.0-16.0) g/dL Hct (37.0-47.0) % MCV (81.0-99.0) fL MCH (27.0-31.0) pg MCHC (32.0-36.0) g/dL RDW (12.0-15.0) % Plt Count (130-450) 10^3/uL MPV (7.9-10.8) fL Neut # (Auto) (1.5-6.6) 10^3/uL Lymph # (Auto) (1.5-3.5) 10^3/uL [place] # (Auto) (0.0-1.0) 10^3/uL Eos # (Auto) (0.0-0.7) 10^3/uL Baso # (Auto) (0.0-0.1) 10^3/uL Absolute Nucleated RBC x10^3/uL Nucleated RBC % /100WBC Sodium 144 (135-145) mmol/L Potassium 4.3 (3.5-4.5) mmol/L Chloride 114 H (101-111) mmol/L Carbon Dioxide 19 L (21-32) mmol/L Anion Gap 11.0 (6-13) BUN 65 H (6-20) mg/dL Creatinine 2.7 H (0.6-1.3) mg/dL Estimated GFR (MDRD) 17 L (>89) Glucose 87 (74-104) mg/dL Calcium 9.6 (8.5-10.3) mg/dL Magnesium (1.7-2.3) mg/dL Total Bilirubin 1.0 (0.2-1.0) mg/dL AST 17 (10-42) IU/L ALT 13 (10-60) IU/L Alkaline Phosphatase 57 (42-121) IU/L Total Protein 6.1 L (6.4-8.9) g/dL Albumin 3.6 (3.2-5.5) g/dL Globulin 2.5 (2.1-4.2) g/dL Albumin/Globulin Ratio 1.4 (1.0-2.2) Urine Color YELLOW Urine Clarity CLEAR (CLEAR) Urine pH 6.0 (5.0-7.5) PH Ur Specific [place] 1.020 (1.002-1.030) Urine Protein 30 H (NEGATIVE) mg/dL Urine Glucose (UA) NEGATIVE (NEGATIVE) mg/dL Urine Ketones TRACE (NEGATIVE) mg/dL Urine Occult Blood NEGATIVE (NEGATIVE) Urine Nitrite NEGATIVE (NEGATIVE) Urine Bilirubin NEGATIVE (NEGATIVE) Urine Urobilinogen 0.2 (NORMAL) (NORMAL) E.U./dL Ur Leukocyte Esterase SMALL H (NEGATIVE) Urine RBC 0-5 (0-5) /HPF Urine WBC >25 H (0-5) /HPF Ur Squamous Epith Cells FEW Squamous (<= Few) Urine Bacteria Rare (None Seen) /HPF Urine Casts 0-2 Granular Casts 26-50 Hyaline Casts /LPF Urine Mucus Few Strands Ur Microscopic Review INDICATED Urine Culture Comments INDICATED 03/20/25 Range/Units 18:42 WBC 8.1 (4.8-10.8) x10^3/uL RBC 3.73 L (4.20-5.40) 10^6/uL Hgb 11.2 L (12.0-16.0) g/dL Hct 33.8 L (37.0-47.0) % MCV 90.6 (81.0-99.0) fL MCH 30.0 (27.0-31.0) pg MCHC 33.1 (32.0-36.0) g/dL RDW 12.7 (12.0-15.0) % Plt Count 161 (130-450) 10^3/uL MPV 12.9 H (7.9-10.8) fL Neut # (Auto) 4.7 (1.5-6.6) 10^3/uL Lymph # (Auto) 2.7 (1.5-3.5) 10^3/uL [place]ander # (Auto) 0.6 (0.0-1.0) 10^3/uL Eos # (Auto) 0.1 (0.0-0.7) 10^3/uL Baso # (Auto) 0.0 (0.0-0.1) 10^3/uL Absolute Nucleated RBC 0.00 x10^3/uL Nucleated RBC % 0.0 /100WBC Sodium 143 (135-145) mmol/L Potassium 4.8 H (3.5-4.5) mmol/L Chloride 109 (101-111) mmol/L Carbon Dioxide 21 (21-32) mmol/L Anion Gap 13.0 (6-13) BUN 68 H (6-20) mg/dL Creatinine 2.9 H (0.6-1.3) mg/dL Estimated GFR (MDRD) 15 L (>89) Glucose 94 (74-104) mg/dL Calcium 10.6 H (8.5-10.3) mg/dL Magnesium 2.1 (1.7-2.3) mg/dL Total Bilirubin 1.2 H (0.2-1.0) mg/dL AST 24 (10-42) IU/L ALT 16 (10-60) IU/L Alkaline Phosphatase 69 (42-121) IU/L Total Protein 7.3 (6.4-8.9) g/dL Albumin 4.2 (3.2-5.5) g/dL Globulin 3.1 (2.1-4.2) g/dL Albumin/Globulin Ratio 1.4 (1.0-2.2) Urine Color Urine Clarity (CLEAR) Urine pH (5.0-7.5) PH Ur Specific [place] (1.002-1.030) Urine Protein (NEGATIVE) mg/dL Urine Glucose (UA) (NEGATIVE) mg/dL Urine Ketones (NEGATIVE) mg/dL Urine Occult Blood (NEGATIVE) Urine Nitrite (NEGATIVE) Urine Bilirubin (NEGATIVE) Urine Urobilinogen (NORMAL) E.U./dL Ur Leukocyte Esterase (NEGATIVE) Urine RBC (0-5) /HPF Urine WBC (0-5) /HPF Ur Squamous Epith Cells (<= Few) Urine Bacteria (None Seen) /HPF Urine Casts /LPF Urine Mucus Ur Microscopic Review Urine Culture Comments Diagnostic Imaging Diagnostic Imaging Results: positive Final report reviewed Diagnostic Imaging Comments: Renal ultrasound pending. Assessment/Plan Problem List (1) JANIE (acute kidney injury): Impression: According to last documented labs in Jul and December 2024, patient's baseline Creatinine likely resides ~1. Over the past few days her BUN and Crea are elevated up to 25-30 and 2.7-3.0 respectively. UA is negative. Renal US pending. Given history of minimal PO intake and K, Na, Ca, Cl borderline elevated, certainly suspect a component of dehydration. - Maintenance IVF NS 100ml/hr -- LR? - Daily BMP - Monitor intake and output (2) Dementia: Impression: Per [place], patient first developed dementia at 67 years old. She currently resides at [facility]. At baseline, she feeds and dresses herself, however requires prompting and assistance with bathing. She ambulates without an assistive device. She is somewhat able to recognize her family members but requires conversational stimulus to identify them; she identifies her daughter and believes her is still present ( in 2024). [place] notes there has been a steady decline in her appetite, likely responsible for a 20 pound weight loss over the past few months, - Given decreased appetite and PO intake, PREHEMMER evaluation to ensure no mechanical abnormalities - PT evaluation - Advanced care planning conversation was performed by Dr. Joyner with daughter and is amenable to considering hospice; hospice consult Qualifiers: Dementia behavioral or psychological symptom: with mood disturbance D ementia severity: severe Dementia type: unspecified type Qualified Code(s): F 03.C3 - Unspecified dementia, severe, with mood disturbance (3) Pacemaker: Impression: Telemetry strips during this admission demonstrate atrial-pacing with HR 55-60. - No intervention required at this time
[2025-03-21] MEDS: PETROLATUM WHITE 5 GM PACKET TOP PRN (14:52)
--- NOTE | 2025-03-22 11:11 | PROVIDER PROGRESS NOTE ---
Subjective Subjective Pt reports feeling: No change Subjective: Ms. Heller is a 89-year-old female who presented from [facility] for hypotension and poor appetite, found to be dehydrated and in JANIE. Of note, patient had previous ED visits this week on 03/15 for neck pain after ground level fall (CT neck was negative and given IVF) and 03/18 for abdominal pain (d/c'd with instructions encourage PO fluid intake). She was ultimately admitted 03/20 after presenting to a walk-in clinic with persistent JANIE and hypotension SBP 80s. Upon assessment patient herself denies any acute complaints. She is able to cooperate with most simple commands but is unable to provide a detailed history, is able to answer yes/no questions. She denies pain, dizziness, vertigo, chest pain/discomfort, palpitations, nausea. Current Medications Current Medications Current Medications: Current Medications Generic Name Dose Route Start Last Admin Trade Name Freq PRN Reason Stop Dose Admin Acetaminophen 650 mg 03/21/25 00:55 Acetaminophen 325 Mg Tablet PO Q4HR PRN Pain 1 to 4, or Fever Sodium Chloride 1,000 mls @ 100 mls/hr 03/21/25 00:55 03/22/25 03:11 Normal Saline 0.9% IV 100 mls/hr .Q10H JAQUELINE Administration Ondansetron HCl 4 mg 03/21/25 00:55 Ondansetron Odt 4 Mg Tablet TL Q6HR PRN Nausea / Vomiting Petrolatum 1 applic 03/21/25 11:00 03/21/25 14:52 Petrolatum White 5 Gm Packet TOP 1 applic PRN PRN Administration Dry Lips Sodium Chloride 10 ml 03/21/25 00:55 Sodium Chloride Flush 0.9% 10 Ml Syringe IVP PRN PRN NEEDED PER PROVIDER ORDERS Sodium Chloride 10 ml 03/21/25 01:00 03/22/25 08:48 Sodium Chloride Flush 0.9% 10 Ml Syringe IVP Not Given 0100,0900,1700 JAQUELINE Objective Vital Signs/Intake & Output Reviewed Vital Signs: Yes Vital Signs: Vital Signs x48h Temp Pulse Resp BP Pulse Ox 03/21/25 04:05 36.5 C 61 14 129/54 L 96 Intake & Output: Intake & Output 03/19/25 03/20/25 03/21/25 03/22/25 23:59 23:59 23:59 23:59 Intake Total 999 / 999 2726 / 2726 537 / 537 Output Total 450 / 450 200 / 200 Balance 999 2276 / 2276 337 / 337 Weight (kg) 45 kg Objective General Appearance: positive No acute distress and Lethargic (Easily arousable to verbal stimuli) Eyes Bilateral: positive Normal inspection, PERRL, Conjunctivae nml, No scleral icterus and Other (Wearing corrective lenses) ENT: positive Other (White plaques on tongue, none to palates) Neck: positive Nml inspection, No JVD and Trachea midline Respiratory: positive No respiratory distress and Breath sounds nml Cardiovascular: positive Regular rate & rhythm and No murmur Peripheral Pulses: 1+: Dorsalis pedis (R), 1+: Dorsalis pedis (L), 1+: Posterior tibialis (R) and 1+: Posterior tibialis (L) and 2+: Radial (R) and 2+: Radial (L) Abdomen: positive Non-tender, Nml bowel sounds and No distention Back: positive Nml inspection Skin: positive No rash, Warm and Dry Extremities: positive Nml appearance and No pedal edema Neurologic/Psychiatric: positive Motor nml (Doesn't follow commands to test toolroom attendant strength), Mood/affect nml, Disoriented to place and Disoriented to time; negative Disoriented to person, Facial droop or Slurred/abnml speech Lab Results 03/22/25 12:11 03/22/25 12:11 Other Labs: Lab Results x24hrs 03/21/25 03/21/25 03/20/25 Range/Units 07:09 07:09 22:00 WBC (4.8-10.8) x10^3/uL RBC (4.20-5.40) 10^6/uL Hgb (12.0-16.0) g/dL Hct (37.0-47.0) % MCV (81.0-99.0) fL MCH (27.0-31.0) pg MCHC (32.0-36.0) g/dL RDW (12.0-15.0) % Plt Count (130-450) 10^3/uL MPV (7.9-10.8) fL Neut # (Auto) (1.5-6.6) 10^3/uL Lymph # (Auto) (1.5-3.5) 10^3/uL Sac # (Auto) (0.0-1.0) 10^3/uL Eos # (Auto) (0.0-0.7) 10^3/uL Baso # (Auto) (0.0-0.1) 10^3/uL Absolute Nucleated RBC x10^3/uL Nucleated RBC % /100WBC Sodium 144 (135-145) mmol/L Potassium 4.3 (3.5-4.5) mmol/L Chloride 114 H (101-111) mmol/L Carbon Dioxide 19 L (21-32) mmol/L Anion Gap 11.0 (6-13) BUN 65 H (6-20) mg/dL Creatinine 2.7 H (0.6-1.3) mg/dL Estimated GFR (MDRD) 17 L (>89) Glucose 87 (74-104) mg/dL Calcium 9.6 (8.5-10.3) mg/dL Magnesium (1.7-2.3) mg/dL Total Bilirubin 1.0 (0.2-1.0) mg/dL AST 17 (10-42) IU/L ALT 13 (10-60) IU/L Alkaline Phosphatase 57 (42-121) IU/L Total Protein 6.1 L (6.4-8.9) g/dL Albumin 3.6 (3.2-5.5) g/dL Globulin 2.5 (2.1-4.2) g/dL Albumin/Globulin Ratio 1.4 (1.0-2.2) Urine Color YELLOW Urine Clarity CLEAR (CLEAR) Urine pH 6.0 (5.0-7.5) PH Ur Specific [place] 1.020 (1.002-1.030) Urine Protein 30 H (NEGATIVE) mg/dL Urine Glucose (UA) NEGATIVE (NEGATIVE) mg/dL Urine Ketones TRACE (NEGATIVE) mg/dL Urine Occult Blood NEGATIVE (NEGATIVE) Urine Nitrite NEGATIVE (NEGATIVE) Urine Bilirubin NEGATIVE (NEGATIVE) Urine Urobilinogen 0.2 (NORMAL) (NORMAL) E.U./dL Ur Leukocyte Esterase SMALL H (NEGATIVE) Urine RBC 0-5 (0-5) /HPF Urine WBC >25 H (0-5) /HPF Ur Squamous Epith Cells FEW Squamous (<= Few) Urine Bacteria Rare (None Seen) /HPF Urine Casts 0-2 Granular Casts 26-50 Hyaline Casts /LPF Urine Mucus Few Strands Ur Microscopic Review INDICATED Urine Culture Comments INDICATED 03/20/25 Range/Units 18:42 WBC 8.1 (4.8-10.8) x10^3/uL RBC 3.73 L (4.20-5.40) 10^6/uL Hgb 11.2 L (12.0-16.0) g/dL Hct 33.8 L (37.0-47.0) % MCV 90.6 (81.0-99.0) fL MCH 30.0 (27.0-31.0) pg MCHC 33.1 (32.0-36.0) g/dL RDW 12.7 (12.0-15.0) % Plt Count 161 (130-450) 10^3/uL MPV 12.9 H (7.9-10.8) fL Neut # (Auto) 4.7 (1.5-6.6) 10^3/uL Lymph # (Auto) 2.7 (1.5-3.5) 10^3/uL Sac # (Auto) 0.6 (0.0-1.0) 10^3/uL Eos # (Auto) 0.1 (0.0-0.7) 10^3/uL Baso # (Auto) 0.0 (0.0-0.1) 10^3/uL Absolute Nucleated RBC 0.00 x10^3/uL Nucleated RBC % 0.0 /100WBC Sodium 143 (135-145) mmol/L Potassium 4.8 H (3.5-4.5) mmol/L Chloride 109 (101-111) mmol/L Carbon Dioxide 21 (21-32) mmol/L Anion Gap 13.0 (6-13) BUN 68 H (6-20) mg/dL Creatinine 2.9 H (0.6-1.3) mg/dL Estimated GFR (MDRD) 15 L (>89) Glucose 94 (74-104) mg/dL Calcium 10.6 H (8.5-10.3) mg/dL Magnesium 2.1 (1.7-2.3) mg/dL Total Bilirubin 1.2 H (0.2-1.0) mg/dL AST 24 (10-42) IU/L ALT 16 (10-60) IU/L Alkaline Phosphatase 69 (42-121) IU/L Total Protein 7.3 (6.4-8.9) g/dL Albumin 4.2 (3.2-5.5) g/dL Globulin 3.1 (2.1-4.2) g/dL Albumin/Globulin Ratio 1.4 (1.0-2.2) Urine Color Urine Clarity (CLEAR) Urine pH (5.0-7.5) PH Ur Specific [place] (1.002-1.030) Urine Protein (NEGATIVE) mg/dL Urine Glucose (UA) (NEGATIVE) mg/dL Urine Ketones (NEGATIVE) mg/dL Urine Occult Blood (NEGATIVE) Urine Nitrite (NEGATIVE) Urine Bilirubin (NEGATIVE) Urine Urobilinogen (NORMAL) E.U./dL Ur Leukocyte Esterase (NEGATIVE) Urine RBC (0-5) /HPF Urine WBC (0-5) /HPF Ur Squamous Epith Cells (<= Few) Urine Bacteria (None Seen) /HPF Urine Casts /LPF Urine Mucus Ur Microscopic Review Urine Culture Comments Diagnostic Imaging Diagnostic Imaging Results: positive Final report reviewed Diagnostic Imaging Comments: Renal ultrasound pending. Assessment/Plan Problem List (1) JANIE (acute kidney injury): Impression: According to last documented labs in Jul and December 2024, patient's baseline Creatinine likely resides ~1. Over the past few days her BUN and Crea are elevated up to 25-30 and 2.7-3.0 respectively. UA is negative. Renal US pending. Given history of minimal PO intake and K, Na, Ca, Cl borderline elevated, certainly suspect a component of dehydration. - This morning, this has resolved down to 1.5. Goals of care discussion with daughter. Plan for Hospice. Social work followed up with family, and they have opted for [facility]. Awaiting intake time. Will continue IVF for 24 hours. (2) Dementia: Impression: Per [place], patient first developed dementia at 67 years old. She currently resides at [facility]. At baseline, she feeds and dresses herself, however requires prompting and assistance with bathing. She ambulates without an assistive device. She is somewhat able to recognize her family members but requires conversational stimulus to identify them; she identifies her daughter and believes her is still present ( in 2024). [place] notes there has been a steady decline in her appetite, likely responsible for a 20 pound weight loss over the past few months. - Advanced care planning conversation was performed by Dr. Joyner with daughter and is amenable to Hospice. Social work choiced daughter; plan for Hospice at [facility] on discharge. Qualifiers: Dementia behavioral or psychological symptom: with mood disturbance D ementia severity: severe Dementia type: unspecified type Qualified Code(s): F 03.C3 - Unspecified dementia, severe, with mood disturbance (3) Pacemaker: Impression: Telemetry strips during this admission demonstrate atrial-pacing with HR 55-60. - No intervention required at this time
[2025-03-22 12:19] LABS: HCT - HEMATOCRIT 28.7 % (37.0-47.0); HGB - HEMOGLOBIN 9.2 g/dL (12.0-16.0); MEAN PLATELET VOLUME 12.8 fL (7.9-10.8); PLT - PLATELET COUNT 115.0 10^3/uL (130-450); RED CELL DISTRIBUTION WIDTH 12.9 % (12.0-15.0)
[2025-03-22 13:01] LABS: BUN - BLOOD UREA NITROGEN 33.0 mg/dL (6-20); CARBON DIOXIDE - CO2 19.0 mmol/L (21-32); CREATININE 1.5 mg/dL (0.6-1.3); GFR - MDRD 33.0 (>89)
--- NOTE | 2025-03-22 15:47 | Ultrasound Report ---
PROCEDURE: US Renal (Retroperitoneal) INDICATIONS: JANIE TECHNIQUE: Real-time scanning was performed of the retroperitoneal organs, with image documentation. COMPARISON: None. FINDINGS: Kidneys: Kidneys are normal in size, with normal parenchymal echogenicity. Right kidney measures 9.3 cm long; left kidney measures 8.2 cm long. No solid masses. No hydronephrosis. No shadowing stones. No complex renal cystic lesions which require dedicated follow up. Bladder: Not evaluated. Miscellaneous: No free abdominal fluid. IMPRESSION: Unremarkable ultrasound examination of bilateral kidneys. Reviewed by: Job Jorge MD on 03/22/2025 3:44 PM PDT Approved by: Job Jorge MD on 03/22/2025 3:44 PM PDT Station ID: [id number]
[2025-03-23] MEDS: LEVOTHYROXINE 125 MCG TABLET PO SCH (06:53)
[2025-03-23] MEDS: LOSARTAN 50 MG TABLET PO SCH (12:20)
[2025-03-23] MEDS: DOCUSATE SODIUM 250 MG CAPSULE PO SCH (12:20)
--- NOTE | 2025-03-23 13:45 | PROVIDER PROGRESS NOTE ---
Subjective Subjective Subjective: Ms. Heller is a 89-year-old female with a history of Alzheimers' dementia who presented from [facility] for hypotension and poor appetite. Initially treating for acute kidney injury with IV fluids. Stopped. Plan is now to make patient hospice back at her facility. Patient herself denies any acute complaints. She denies pain, dizziness, vertigo, chest pain/discomfort, palpitations, nausea. Current Medications Current Medications Current Medications: Current Medications Generic Name Dose Route Start Last Admin Trade Name Freq PRN Reason Stop Dose Admin Acetaminophen 650 mg 03/21/25 00:55 Acetaminophen 325 Mg Tablet PO Q4HR PRN Pain 1 to 4, or Fever Docusate Sodium 250 - 500 mg 03/23/25 09:00 03/23/25 12:20 Docusate Sodium 250 Mg Capsule PO Not Given DAILY JAQUELINE Levothyroxine Sodium 125 mcg 03/23/25 07:00 03/23/25 06:53 Levothyroxine 125 Mcg Tablet PO 125 mcg QDAC JAQUELINE Administration Losartan Potassium 25 mg 03/23/25 09:00 03/23/25 12:20 Losartan 50 Mg Tablet PO Not Given DAILY JAQUELINE Ondansetron HCl 4 mg 03/21/25 00:55 Ondansetron Odt 4 Mg Tablet TL Q6HR PRN Nausea / Vomiting Petrolatum 1 applic 03/21/25 11:00 03/21/25 14:52 Petrolatum White 5 Gm Packet TOP 1 applic PRN PRN Administration Dry Lips Polyethylene Glycol 17 gm 03/23/25 09:00 03/23/25 12:21 Polyethylene Glycol 3350 17 Gm Packet PO Not Given DAILY JAQUELINE Sodium Chloride 10 ml 03/21/25 00:55 Sodium Chloride Flush 0.9% 10 Ml Syringe IVP PRN PRN NEEDED PER PROVIDER ORDERS Sodium Chloride 10 ml 03/21/25 01:00 03/23/25 12:21 Sodium Chloride Flush 0.9% 10 Ml Syringe IVP Not Given 0100,0900,1700 [facility] Objective Vital Signs/Intake & Output Reviewed Vital Signs: Yes Vital Signs: Vital Signs x48h Temp Pulse Resp BP Pulse Ox 03/23/25 13:15 97.9 F 73 16 124/75 94 Intake & Output: Intake & Output 03/20/25 03/21/25 03/22/25 03/23/25 23:59 23:59 23:59 23:59 Intake Total 1000 / 999 2726 / 2726 2136 / 2136 120 / 120 Output Total 450 / 450 200 / 200 Balance 1000 / 999 2275 / 2275 120 / 120 Weight (kg) 45 kg Objective General Appearance: positive No acute distress and Lethargic (Easily arousable to verbal stimuli) Eyes Bilateral: positive Normal inspection, PERRL, Conjunctivae nml, No scleral icterus and Other (Wearing corrective lenses) ENT: positive Other (White plaques on tongue, none to palates) Neck: positive Nml inspection, No JVD and Trachea midline Respiratory: positive No respiratory distress and Breath sounds nml Cardiovascular: positive Regular rate & rhythm and No murmur Peripheral Pulses: 1+: Dorsalis pedis (R), 1+: Dorsalis pedis (L), 1+: Posterior tibialis (R) and 1+: Posterior tibialis (L) and 2+: Radial (R) and 2+: Radial (L) Abdomen: positive Non-tender, Nml bowel sounds and No distention Back: positive Nml inspection Skin: positive No rash, Warm and Dry Extremities: positive Nml appearance and No pedal edema Neurologic/Psychiatric: positive Motor nml (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), Mood/affect nml, Disoriented to place and Disoriented to time; negative Disoriented to person, Facial droop or Slurred/abnml speech Lab Results 03/22/25 12:11 03/22/25 12:11 Other Labs: Lab Results x24hrs 03/21/25 03/21/25 03/20/25 Range/Units 07:09 07:09 22:00 WBC (4.8-10.8) x10^3/uL RBC (4.20-5.40) 10^6/uL Hgb (12.0-16.0) g/dL Hct (37.0-47.0) % MCV (81.0-99.0) fL MCH (27.0-31.0) pg MCHC (32.0-36.0) g/dL RDW (12.0-15.0) % Plt Count (130-450) 10^3/uL MPV (7.9-10.8) fL Neut # (Auto) (1.5-6.6) 10^3/uL Lymph # (Auto) (1.5-3.5) 10^3/uL [place] # (Auto) (0.0-1.0) 10^3/uL Eos # (Auto) (0.0-0.7) 10^3/uL Baso # (Auto) (0.0-0.1) 10^3/uL Absolute Nucleated RBC x10^3/uL Nucleated RBC % /100WBC Sodium 144 (135-145) mmol/L Potassium 4.3 (3.5-4.5) mmol/L Chloride 114 H (101-111) mmol/L Carbon Dioxide 19 L (21-32) mmol/L Anion Gap 11.0 (6-13) BUN 65 H (6-20) mg/dL Creatinine 2.7 H (0.6-1.3) mg/dL Estimated GFR (MDRD) 17 L (>89) Glucose 87 (74-104) mg/dL Calcium 9.6 (8.5-10.3) mg/dL Magnesium (1.7-2.3) mg/dL Total Bilirubin 1.0 (0.2-1.0) mg/dL AST 17 (10-42) IU/L ALT 13 (10-60) IU/L Alkaline Phosphatase 57 (42-121) IU/L Total Protein 6.1 L (6.4-8.9) g/dL Albumin 3.6 (3.2-5.5) g/dL Globulin 2.5 (2.1-4.2) g/dL Albumin/Globulin Ratio 1.4 (1.0-2.2) Urine Color YELLOW Urine Clarity CLEAR (CLEAR) Urine pH 6.0 (5.0-7.5) PH Ur Specific [place] 1.020 (1.002-1.030) Urine Protein 30 H (NEGATIVE) mg/dL Urine Glucose (UA) NEGATIVE (NEGATIVE) mg/dL Urine Ketones TRACE (NEGATIVE) mg/dL Urine Occult Blood NEGATIVE (NEGATIVE) Urine Nitrite NEGATIVE (NEGATIVE) Urine Bilirubin NEGATIVE (NEGATIVE) Urine Urobilinogen 0.2 (NORMAL) (NORMAL) E.U./dL Ur Leukocyte Esterase SMALL H (NEGATIVE) Urine RBC 0-5 (0-5) /HPF Urine WBC >25 H (0-5) /HPF Ur Squamous Epith Cells FEW Squamous (<= Few) Urine Bacteria Rare (None Seen) /HPF Urine Casts 0-2 Granular Casts 26-50 Hyaline Casts /LPF Urine Mucus Few Strands Ur Microscopic Review INDICATED Urine Culture Comments INDICATED 03/20/25 Range/Units 18:42 WBC 8.1 (4.8-10.8) x10^3/uL RBC 3.73 L (4.20-5.40) 10^6/uL Hgb 11.2 L (12.0-16.0) g/dL Hct 33.8 L (37.0-47.0) % MCV 90.6 (81.0-99.0) fL MCH 30.0 (27.0-31.0) pg MCHC 33.1 (32.0-36.0) g/dL RDW 12.7 (12.0-15.0) % Plt Count 161 (130-450) 10^3/uL MPV 12.9 H (7.9-10.8) fL Neut # (Auto) 4.7 (1.5-6.6) 10^3/uL Lymph # (Auto) 2.7 (1.5-3.5) 10^3/uL [place] # (Auto) 0.6 (0.0-1.0) 10^3/uL Eos # (Auto) 0.1 (0.0-0.7) 10^3/uL Baso # (Auto) 0.0 (0.0-0.1) 10^3/uL Absolute Nucleated RBC 0.00 x10^3/uL Nucleated RBC % 0.0 /100WBC Sodium 143 (135-145) mmol/L Potassium 4.8 H (3.5-4.5) mmol/L Chloride 109 (101-111) mmol/L Carbon Dioxide 21 (21-32) mmol/L Anion Gap 13.0 (6-13) BUN 68 H (6-20) mg/dL Creatinine 2.9 H (0.6-1.3) mg/dL Estimated GFR (MDRD) 15 L (>89) Glucose 94 (74-104) mg/dL Calcium 10.6 H (8.5-10.3) mg/dL Magnesium 2.1 (1.7-2.3) mg/dL Total Bilirubin 1.2 H (0.2-1.0) mg/dL AST 24 (10-42) IU/L ALT 16 (10-60) IU/L Alkaline Phosphatase 69 (42-121) IU/L Total Protein 7.3 (6.4-8.9) g/dL Albumin 4.2 (3.2-5.5) g/dL Globulin 3.1 (2.1-4.2) g/dL Albumin/Globulin Ratio 1.4 (1.0-2.2) Urine Color Urine Clarity (CLEAR) Urine pH (5.0-7.5) PH Ur Specific [place] (1.002-1.030) Urine Protein (NEGATIVE) mg/dL Urine Glucose (UA) (NEGATIVE) mg/dL Urine Ketones (NEGATIVE) mg/dL Urine Occult Blood (NEGATIVE) Urine Nitrite (NEGATIVE) Urine Bilirubin (NEGATIVE) Urine Urobilinogen (NORMAL) E.U./dL Ur Leukocyte Esterase (NEGATIVE) Urine RBC (0-5) /HPF Urine WBC (0-5) /HPF Ur Squamous Epith Cells (<= Few) Urine Bacteria (None Seen) /HPF Urine Casts /LPF Urine Mucus Ur Microscopic Review Urine Culture Comments Diagnostic Imaging Diagnostic Imaging Results: positive Final report reviewed Diagnostic Imaging Comments: Renal ultrasound pending. Assessment/Plan Problem List (1) JANIE (acute kidney injury): Impression: Likely due to decreased p.o. intake, as patient has not been eating or drinking well. This is likely due to progression of her dementia. Renal ultrasound does not show any acute abnormalities. Her creatinine did improve down to 1.5 with IV fluids. Goals of care conversation with patient and patient's family. Plan is for hospice care. Hospice to deliver her DME tomorrow. Patient can likely then be discharged tomorrow once this is delivered at her facility. (2) Dementia: Impression: Per daughter [place], patient first developed dementia at 67 years old. She currently resides at [facility]. At baseline, she feeds and dresses herself, however requires prompting and assistance with bathing. She ambulates without an assistive device. She is somewhat able to recognize her family members but requires conversational stimulus to identify them; she identifies her daughter and believes her is still present ( in 2024). [place] notes there has been a steady decline in her appetite, likely responsible for a 20 pound weight loss over the past few months. Advanced care planning conversation was performed by Dr. Joyner with daughter and is amenable to Hospice. Social work choiced daughter; plan for Hospice at [facility] on discharge. Qualifiers: Dementia behavioral or psychological symptom: with mood disturbance D ementia severity: severe Dementia type: unspecified type Qualified Code(s): F 03.C3 - Unspecified dementia, severe, with mood disturbance (3) Pacemaker: Impression: Telemetry strips during this admission demonstrate atrial-pacing with HR 55- 60. No intervention required at this time
[2025-03-24] MEDS: ACETAMINOPHEN 325 MG TABLET PO PRN (08:47)
--- NOTE | 2025-03-24 10:17 | PROVIDER PROGRESS NOTE ---
Subjective Prog Note Date Prog Note Date: 03/24/25 Prog Note Time: 10:16 Subjective Subjective: Ms. Heller is a very pleasant 89-year-old female with history of Alzheimer's dementia presenting from memory care for hypotension and poor appetite. Suspect that this is in stages of her dementia. Her appetite has not returned fully. She did apparently ambulate to and from the bathroom yesterday. She is having some pains which are managed with as needed medications at this time. Otherwise denies any other acute complaints. Plan tentatively for hospice DME delivered today. Hospice intake not scheduled until later this week. I have adjusted her orders to reflect her comfort care status. Current Medications Current Medications Current Medications: Current Medications Generic Name Dose Route Start Last Admin Trade Name Freq PRN Reason Stop Dose Admin Acetaminophen 650 mg 03/21/25 00:55 03/24/25 08:47 Acetaminophen 325 Mg Tablet PO 650 mg Q4HR PRN Administration Pain 1 to 4, or Fever Docusate Sodium 250 - 500 mg 03/23/25 09:00 03/24/25 08:47 Docusate Sodium 250 Mg Capsule PO 250 mg DAILY JAQUELINE Administration Levothyroxine Sodium 125 mcg 03/23/25 07:00 03/24/25 06:25 Levothyroxine 125 Mcg Tablet PO 125 mcg QDAC JAQUELINE Administration Losartan Potassium 25 mg 03/23/25 09:00 03/24/25 08:47 Losartan 50 Mg Tablet PO 25 mg DAILY JAQUELINE Administration Ondansetron HCl 4 mg 03/21/25 00:55 Ondansetron Odt 4 Mg Tablet TL Q6HR PRN Nausea / Vomiting Petrolatum 1 applic 03/21/25 11:00 03/21/25 14:52 Petrolatum White 5 Gm Packet TOP 1 applic PRN PRN Administration Dry Lips Polyethylene Glycol 17 gm 03/23/25 09:00 03/24/25 08:47 Polyethylene Glycol 3350 17 Gm Packet PO 17 gm DAILY JAQUELINE Administration Sodium Chloride 10 ml 03/21/25 00:55 Sodium Chloride Flush 0.9% 10 Ml Syringe IVP PRN PRN NEEDED PER PROVIDER ORDERS Sodium Chloride 10 ml 03/21/25 01:00 03/24/25 07:50 Sodium Chloride Flush 0.9% 10 Ml Syringe IVP Not Given 0100,0900,1700 JAQUELINE Objective Vital Signs/Intake & Output Reviewed Vital Signs: Yes Vital Signs: Vital Signs x48h Temp Pulse Resp BP Pulse Ox 03/24/25 07:52 36.5 C 61 20 124/53 L 94 Intake & Output: Intake & Output 03/21/25 03/22/25 03/23/25 03/24/25 23:59 23:59 23:59 23:59 Intake Total 2726 / 2726 213 / 213 220 / 220 Output Total 450 / 450 200 / 200 Balance 2276 / 2276 1936 / 1936 220 / 220 Objective Comments/Other: GEN: No acute distress, somnolent but rousable. Appears comfortable HEENT: NC/AT, normal appearance of external ears and nose. Hearing baseline. Cardiac: Regular rate and rhythm, no murmurs. Pulm: Lungs CTA bilaterally, no cough, no wheezes. Abdomen: Soft, nontender, nondistended. No rebound or guarding Extremities: Moves all 4 extremities equally. Normal tone. Neuro: Face symmetric, CN II through XII intact grossly. Gait exam deferred Psych: Conversant. Mood euthymic. Normal affect. Lab Results 03/22/25 12:11 03/22/25 12:11 Assessment/Plan Problem List (1) Dementia: Impression: Diagnosed almost 20 years ago at age 67. Currently resides at [facility]. Feeds her self and dress herself, but requires prompting. She has had progressive decline in her appetite over the preceding months. Her passed earlier this year, and may have precipitated a functional decline. Notably 20 pounds of weight loss over the preceding months. Multiple ACP conversations during this hospitalization, and family are all amenable to hospice. Plan for discharge on hospice at [facility] on 03/25. Intake plan for 03/27. - Comfort meds sent to [facility] - Equipment delivered by hospice 03/24 Qualifiers: Dementia behavioral or psychological symptom: with mood disturbance D ementia severity: severe Dementia type: unspecified type Qualified Code(s): F 03.C3 - Unspecified dementia, severe, with mood disturbance (2) JANIE (acute kidney injury): Impression: Stable, no longer trending. Decreased p.o. intake in the preceding weeks due to progression of her dementia likely. Did receive IV fluids. Improved creatinine initially. Renal ultrasound without any acute processes. - Comfort measures as above. (3) Pacemaker: Impression: Noted. Atrial paced on telemetry strips this admission.
[2025-03-24] MEDS ORDERED: GLYCOPYRROLATE 1 MG/5 ML VIAL SUBQ PRN (10:18)
[2025-03-24] MEDS ORDERED: LOPERAMIDE 2 MG CAPSULE PO PRN (10:18)
[2025-03-24] MEDS ORDERED: MORPHINE SOL 10 MG/0.5 ML ORAL SYRINGE SL PRN (10:18)
[2025-03-24] MEDS ORDERED: SENNA SYRUP 8.8 MG/5 ML UDC PO PRN (10:18)
[2025-03-24 16:41] VITALS: BP 110/66; TEMP 98.6; O2SAT 97
--- NOTE | 2025-03-25 09:20 | Discharge Summary ---
"Discharge Summary Admit Date: 03/20/25 Discharge Date: 03/25/25 Discharging Provider: Vic Souza DO Primary Care Provider: Wayne Shah Code Status: Do Not Attempt Resuscitation Discharge Facility Name: [facility] DIAGNOSES Discharge Diagnoses with Status of Each Condition: Acute kidney injury, improved with IV fluids Alzheimer's dementia, likely end-stage, transition to hospice HPI History of Present Illness: 89 y old female with PMH Dementia brought in from [facility] care facility due to low bp and not eating well. Pt has dmeentia so most of history is by daughter at bed side. As per daughter, pt has not been eating well lately. She has been in ER three time this week. Denies chest pain, nausea, vomiting, diarrhea, constipation On presentation, patient was hypotensive. Llabs showed JANIE In ER, patient was given IVF. Labs were repeated and creatinine improved to 2.7 Pt id admitted due to JANIE, dehydration and hypotension CONSULTS | PROCEDURES Procedures: Chest x-ray 03/20/2025 Kidney ultrasound 03/22/2025 HOSPITAL COURSE Hospital Course: Patient was admitted with symptoms of hypovolemia. She had apparently not been eating much at her facility for several days. She has a history of Alzheimer's dementia that has been advancing over the preceding months. She received IV hydration, and her blood pressure as well as her kidney function both improved. Given the progressive nature of her disease, advanced care planning was conducted on 03/21. After extensive conversation with patient's family, the patient was confirmed as a DNR and plan was made that acute episode of care would be completed and then patient would discharge on hospice. With the help of case management and her hospitalist team, family is able to arrange for hospice intake to happen on 03/28. She is being discharged in stable condition on comfort measures only with medications having been sent to [facility] at the request of her facility. She will discharge to 03/25 with hospice intake scheduled for 03/28. ALLERGIES Allergies Allergy/AdvReac Type Severity Reaction Status Date / Time cat dander Allergy Intermediate Sneezing, Verified 03/20/25 14:40 watery eyes grass pollen Allergy Intermediate Sneezing, Verified 03/20/25 14:40 watery eyes MEDICATIONS Ambulatory Orders Medication Instructions Recorded Confirmed acetaminophen 325 mg tablet 650 mg (2 x 325 mg) PO Q4H R PRN 03/24/25 Pain 1 to 4, or Fever #30 tabs docusate sodium 250 mg capsule 250 - 500 mg (1 - 2 x 2 50 mg) PO 03/24/25 DAILY #14 caps glycopyrrolate 0.2 mg/mL injection 0.2 mg subcut Q4H P RN Excessive 03/24/25 solution secretions #5 mL loperamide 2 mg capsule 2 mg PO Q2H PRN Diarrhea #10 caps 03/24/25 morphine concentrate 10 mg/0.5 mL 10 mg (0.5 mL) subli ngual Q2HR PRN 03/24/25 oral syringe (FOR ORAL USE ONLY) Moderate Pain (Level 4-6)/SOA #14 ea ondansetron 4 mg disintegrating 4 mg translingual Q6HR PRN Nausea 03/24/25 tablet / Vomiting #10 tabs polyethylene glycol 3350 17 gram 17 g PO DAILY PRN Con stipation #7 03/24/25 oral powder packet ea white petrolatum 1 applic topical PRN PRN Dry Lips 03/24/25 #100 grams PHYSICAL EXAM AT DISCHARGE Physical Exam Other/Comments: GEN: No acute distress, somnolent but rousable. Appears comfortable HEENT: NC/AT, normal appearance of external ears and nose. Hearing baseline. Cardiac: Regular rate and rhythm, no murmurs. Pulm: Lungs CTA bilaterally, no cough, no wheezes. Abdomen: Soft, nontender, nondistended. No rebound or guarding Extremities: Moves all 4 extremities equally. Normal tone. Neuro: Face symmetric, CN II through XII intact grossly. Gait exam deferred Psych: Conversant. Mood euthymic. Normal affect LABS 03/22/25 12:11 03/22/25 12:11 FOLLOW UP Follow Up: Hospice intake 03/28 TIME SPENT Time Spent in Discharge (Minutes): 36 Discharge Plan Discharge Patient Disposition: 50 Hospice/Home DC/Xfer Condition: Stable Medically Cleared Date:: 03/24/25 Prescriptions: New acetaminophen 325 mg Tablet 650 mg PO Q4HR PRN (Reason: Pain 1 to 4, or Fever) Qty: 30 0RF loperamide 2 mg Capsule 2 mg PO Q2H PRN (Reason: Diarrhea) Qty: 10 0RF polyethylene glycol 3350 17 gram Powder In Packet 17 g PO DAILY PRN (Reason: Constipation) Qty: 7 0RF glycopyrrolate 0.2 mg/mL Solution 0.2 mg subcut Q4H PRN (Reason: Excessive secretions) Qty: 5 0RF docusate sodium 250 mg Capsule 250 - 500 mg PO DAILY Qty: 14 0RF ondansetron 4 mg Tablet,Disintegrating 4 mg translingual Q6HR PRN (Reason: Nausea / Vomiting) Qty: 10 0RF white petrolatum Ointment In Packet 1 applic topical PRN PRN (Reason: Dry Lips) Qty: 100 0RF morphine concentrate 10 mg/0.5 mL Syringe 10 mg sublingual Q2HR PRN (Reason: Moderate Pain (Level 4-6)/SOA) Qty: 14 0RF Discontinued Therapeutic-M 19 mg iron- 400 mcg tablet 1 tab PO DAILYWM Qty: 180 1RF losartan 25 mg tablet 25 mg PO DAILY Qty: 90 1RF levothyroxine [Euthyrox] 125 mcg tablet 125 mcg PO QDAY Qty: 30 2RF memantine 5 mg tablet See Rx Instructions .ROUTE .COMPLEX Qty: 90 1RF Dose Instruction: take 1 tablet by mouth every morning for 30 DAYS Rx Instructions: take 1 tablet by mouth every morning for 30 DAYS acetaminophen 325 mg capsule 325 mg PO Q6H PRN (Reason: pain) Activity Restrictions: No Restrictions Diet: Regular Care Plan Goals: You admitted with low blood pressure and a kidney injury likely related to not getting of fluids over the days preceding her hospitalization. You received IV fluids and your kidney function improved. Your blood pressure also improved. Given that your poor appetite is likely a sign of your advancing dementia, it was discussed and recommendation was made to transition to hospice after this hospitalization. Hospice will help maintain your comfort in your last days of life. They should be bringing supplies and plan to meet with you for intake and further introduction to their services on 03/28. In the meantime, I am sending with some medicines for pain, anxiety, regulating her bowel movements, and managing oral secretions. This should get you through to see hospice on Sunday. It has been a pleasure caring for you, and I hope you continue to be comfortable. Print Language: Khmer Patient Instructions: Hospice Managing Pain, Hospice- Caring for Your Loved One, Hospice Care- Symptoms of ..."
== END 2025-03-25 11:30 | disposition hospice, home (50) | DRG 683 ==
LOC: ED 15:59 → SUATTDRO 22:44 → MS2 22:44
PROVIDERS: ADMIT Internal Medicine; ATTEND Student in an Organized Health Care Education/Training Program